=== PATIENT | female | born 1940 | race Caucasian/White ===

== ENCOUNTER 2017-08-12 13:28 | Emergency (ER) | payer MEDICARE, OTHER, SELFPAY ==
[2017-08-12 13:38] VITALS: BP 173/63; PULSE 62; RESP 20; TEMP 36.4; O2SAT 98; BMI 28.3
--- NOTE | 2017-08-12 13:54 | ED.NAVMDI ---
HPI - Nausea/Vomiting/Diarrhea <Patrizia Elmore PA-C - Last Filed: 08/12/17 21:36> General Chief complaint: Nausea/Vomiting/Diarrhea Stated complaint: 'NOT FEELING GOOD' Time Seen by Provider: 08/12/17 13:30 Source: patient and family Mode of arrival: ambulatory Limitations: no limitations History of Present Illness HPI Narrative: This 77-year-old female presents with a 2 day history of worsening generalized weakness. She states that she has felt nauseated and has not eaten, so she thinks it may be related to that. She states that she has not vomited, but feels like she will throw up if she eats. She denies any focal weakness, difficulty with speech, or swallowing. She denies any chest pain, dyspnea or palpitations. She denies any abdominal pain, urinary symptoms, diarrhea or blood in the stools. She denies any recent upper respiratory symptoms such as cough. She denies any fever or other new symptoms. She states she has been trying to go about her daily activities but getting more difficult due to feeling weak. She states the only new medication she is on is Aricept. Took the 1st dose on Saturday and she did start to feel nauseated after that. Related Data Home Medications Medication Instructions Recorded Confirmed loratadine 10 mg PO QDAY #0 03/04/17 08/12/17 amlodipine 10 mg PO DAILY 08/12/17 08/12/17 atenolol 25 mg PO DAILY 08/12/17 08/12/17 clotrimazole-betamethasone 1 applic TOPICAL BID 08/12/17 08/12/17 fluoxetine 40 mg PO BID 08/12/17 08/12/17 insulin aspart U-100 [Novolog 21 unit SQ TIDWM 08/12/17 08/12/17 Flexpen U-100 Insulin] insulin glargine [Lantus Solostar 30 units SUB-Q BEDTIME 08/12/17 08/12/17 U-100 Insulin] ipratropium bromide 2 spray INTRANASAL DIRECTED 08/12/17 08/12/17 Previous Rx's Medication Instructions Recorded levothyroxine [Synthroid] 75 mcg PO QAM #30 tab 03/08/17 ondansetron [Zofran ODT] 4 mg PO Q6H PRN #7 tab 08/12/17 Allergies Allergy/AdvReac Type Severity Reaction Status Date / Time Sulfa (Sulfonamide Allergy Intermediate Rash Verified 08/12/17 13:41 Antibiotics) [SULFA (SULFONAMIDE ANTIBIOTICS)] Penicillins [PENICILLINS] Allergy Unknown Rash Verified 08/12/17 13:41 promethazine [PROMETHAZINE] Allergy Unknown Unverified 06/19/17 12:41 Review of Systems <Patrizia Elmore PA-C - Last Filed: 08/12/17 21:36> Review of Systems All systems reviewed & are unremarkable except as noted in HPI and below Exam <Patrizia Elmore PA-C - Last Filed: 08/12/17 21:36> Narrative Exam Narrative: GENERAL APPEARANCE: Patient sitting comfortably, in no distress. HEENT: PERRL, EOMI, normal oropharynx NECK: Supple, no masses LUNGS: Clear to auscultation bilaterally. HEART: Rate and rhythm regular without murmur, normal S1 and S2, no S3 or S4. ABDOMEN: Soft, NT, ND, + BS x 4 quadrants NEUROLOGIC: Alert and oriented, normal speech, and coordination. MUSCULOSKELETAL: Full Csp AROM. COY. Able to maintain bilateral hip and shoulder flexion without drift Initial Vital Signs Initial Vital Signs: Vital Signs Temperature 97.6 F 08/12/17 13:38 Pulse Rate 62 08/12/17 13:38 Respiratory Rate 20 08/12/17 13:38 Blood Pressure 173/63 H 08/12/17 13:38 Pulse Oximetry 98 08/12/17 13:38 <Ion Lee MD - Last Filed: 09/12/17 06:50> Initial Vital Signs Initial Vital Signs: Vital Signs Temperature 97.6 F 08/12/17 13:38 Pulse Rate 62 08/12/17 13:38 Respiratory Rate 20 08/12/17 13:38 Blood Pressure 173/63 H 08/12/17 13:38 Pulse Oximetry 98 08/12/17 13:38 Course <Patrizia Elmore PA-C - Last Filed: 08/12/17 21:36> Hospital Course: Prior to discharge patient is ambulating comfortably, reported feeling improved, nausea resolved. Tolerating fluids and food. Reviewed findings with Dr. Navarro as well as time correlation of symptoms with her starting Aricept. He is agreeable with plan to discharge patient. I did review her findings of elevated LFTs with her, and she states that she thinks she has had these in the past (we may not have access to her most recent lab work as her PCP uses an outside lab). Advised her of need for follow up on these as well as her nausea and weakness with her PCP in the next few days and she is agreeable Orders Ordered: Discontinued Medications Sodium Chloride (Normal Saline 0.9%) 1,000 mls @ 1,000 mls/hr IV BOLUS ONE Stop: 08/12/17 15:08 Last Infusion: 08/12/17 18:13 Dose: 0 mls/hr Admin: 08/12/17 14:19 Dose: 1,000 mls/hr Ondansetron HCl (Zofran) 4 mg IV NOW ONE Stop: 08/12/17 14:10 Last Admin: 08/12/17 14:19 Dose: 4 mg Vital Signs - 8 hr 08/12/17 13:38 08/12/17 14:16 08/12/17 15:08 Temperature 97.6 F Pulse Rate 62 60 56 L Respiratory Rate 20 16 16 Blood Pressure 173/63 H Blood Pressure [Left Arm] 173/63 H 137/42 H Pulse Oximetry 98 99 95 08/12/17 16:04 08/12/17 17:50 Temperature Pulse Rate 57 L 56 L Respiratory Rate 16 16 Blood Pressure 139/54 H Blood Pressure [Left Arm] 122/47 H Pulse Oximetry 96 97 <Ion Lee MD - Last Filed: 09/12/17 06:50> Orders Ordered: Discontinued Medications Sodium Chloride (Normal Saline 0.9%) 1,000 mls @ 1,000 mls/hr IV BOLUS ONE Stop: 08/12/17 15:08 Last Infusion: 08/12/17 18:13 Dose: 0 mls/hr Admin: 08/12/17 14:19 Dose: 1,000 mls/hr Ondansetron HCl (Zofran) 4 mg IV NOW ONE Stop: 08/12/17 14:10 Last Admin: 08/12/17 14:19 Dose: 4 mg Vital Signs - 8 hr 08/12/17 13:38 08/12/17 14:16 08/12/17 15:08 Temperature 97.6 F Pulse Rate 62 60 56 L Respiratory Rate 20 16 16 Blood Pressure 173/63 H Blood Pressure [Left Arm] 173/63 H 137/42 H Pulse Oximetry 98 99 95 08/12/17 16:04 08/12/17 17:50 Temperature Pulse Rate 57 L 56 L Respiratory Rate 16 16 Blood Pressure 139/54 H Blood Pressure [Left Arm] 122/47 H Pulse Oximetry 96 97 MDM - Nausea/Vomiting/Diarrhea <Patrizia Elmore PA-C - Last Filed: 08/12/17 21:36> Lab Data Result diagrams: 08/12/17 14:35 08/12/17 14:35 Lab Results 08/12/17 08/12/17 08/12/17 Range/Units 14:35 14:35 14:35 WBC 8.4 (4.5-11.0) X10^3/uL RBC 4.58 (4.0-5.2) X10^6/uL Hgb 12.9 (12.0-16.0) g/dL Hct 37.7 (36-46) % MCV 82.3 (80-100) fL MCH 28.1 (26-34) PG MCHC 34.2 (30-36) % RDW 15.9 H (11.6-14.8) % Plt Count 213 (150-400) X10^3/uL Neut % (Auto) 83.8 H (50-75) % Lymph % (Auto) 10.9 L (25-40) % Carroll % (Auto) 4.2 (3-14) % Eos % (Auto) 0.8 L (2-4) % Baso % (Auto) 0.3 (0-2) % Neut # (Auto) 7100 H (7113-3806) /uL Sodium 137 (137-145) mmol/L Potassium 4.4 (3.4-5.1) mmol/L Chloride 99 (98-107) mmol/L Carbon Dioxide 28 (22-32) mmol/L BUN 16 (7-17) mg/dL Creatinine 0.50 L (0.52-1.04) mg/dL Estimated GFR > 60.0 (>60) mL/min BUN/Creatinine Ratio 32.0 H (6-22) Glucose 181 H (80-110) mg/dL Calcium 9.6 (8.4-10.2) mg/dL Magnesium 1.7 (1.6-2.3) mg/dL Total Bilirubin 0.6 (0.2-1.3) mg/dL AST 314 H (14-36) IU/L ALT 184 H (9-52) IU/L Alkaline Phosphatase 157 H (38-126) U/L Troponin I < 0.012 (0.01-0.034) ng/mL Total Protein 7.4 (6.3-8.2) g/dL Albumin 4.0 (3.5-5.0) g/dL Globulin 3.4 (1.7-4.1) g/dL Albumin/Globulin Ratio 1.2 (1.0-2.8) Lipase 176 (23-300) U/L Urine Color Urine Appearance Urine pH Ur Specific Shannon Urine Protein Urine Glucose (UA) Urine Ketones Urine Occult Blood Urine Nitrate Urine Bilirubin Urine Urobilinogen Ur Leukocyte Esterase Urine RBC (0-5/HPF) Urine WBC (0-5/HPF) Ur Squamous Epith Cells Ur Transition Epith Cell Ur Renal Epithelial Cell Calcium Oxalate Crystal Uric Acid Crystals Triple Phos Crystals Other Crystals Amorphous Sediment Urine Bacteria (None) Hyaline Casts Granular Casts RBC Casts WBC Casts Other Casts Urine Mucus Urine Trichomonas Urine Yeast Urine Sperm Ur Culture Indicated? Micro UA Comment 08/12/17 09/07/17 Range/Units 16:31 Unknown WBC (4.5-11.0) X10^3/uL RBC (4.0-5.2) X10^6/uL Hgb (12.0-16.0) g/dL Hct (36-46) % MCV (80-100) fL MCH (26-34) PG MCHC (30-36) % RDW (11.6-14.8) % Plt Count (150-400) X10^3/uL Neut % (Auto) (50-75) % Lymph % (Auto) (25-40) % Carroll % (Auto) (3-14) % Eos % (Auto) (2-4) % Baso % (Auto) (0-2) % Neut # (Auto) (4350-3181) /uL Sodium (137-145) mmol/L Potassium (3.4-5.1) mmol/L Chloride (98-107) mmol/L Carbon Dioxide (22-32) mmol/L BUN (7-17) mg/dL Creatinine (0.52-1.04) mg/dL Estimated GFR (>60) mL/min BUN/Creatinine Ratio (6-22) Glucose (80-110) mg/dL Calcium (8.4-10.2) mg/dL Magnesium (1.6-2.3) mg/dL Total Bilirubin (0.2-1.3) mg/dL AST (14-36) IU/L ALT (9-52) IU/L Alkaline Phosphatase (38-126) U/L Troponin I (0.01-0.034) ng/mL Total Protein (6.3-8.2) g/dL Albumin (3.5-5.0) g/dL Globulin (1.7-4.1) g/dL Albumin/Globulin Ratio (1.0-2.8) Lipase (23-300) U/L Urine Color Cancelled Urine Appearance Cancelled Urine pH Cancelled Ur Specific Shannon Cancelled Urine Protein Cancelled Urine Glucose (UA) Cancelled Urine Ketones Cancelled Urine Occult Blood Cancelled Urine Nitrate Cancelled Urine Bilirubin Cancelled Urine Urobilinogen Cancelled Ur Leukocyte Esterase Cancelled Urine RBC 1-5/hpf Cancelled (0-5/HPF) Urine WBC 5-10/hpf H Cancelled (0-5/HPF) Ur Squamous Epith Cells 0-1 /hpf Cancelled Ur Transition Epith Cell Cancelled Ur Renal Epithelial Cell Cancelled Calcium Oxalate Crystal Cancelled Uric Acid Crystals Cancelled Triple Phos Crystals Cancelled Other Crystals Cancelled Amorphous Sediment Cancelled Urine Bacteria Many (>30) H Cancelled (None) Hyaline Casts Cancelled Granular Casts Cancelled RBC Casts Cancelled WBC Casts Cancelled Other Casts Cancelled Urine Mucus Cancelled Urine Trichomonas Cancelled Urine Yeast Cancelled Urine Sperm Cancelled Ur Culture Indicated? Specimen cultured Cancelled Micro UA Comment Not Reportable Cancelled ECG Data Attestation: I personally reviewed and interpreted this ECG as follows: (NSR with rate 61, normal axis) Prior ECG tracings: not available for review <Ion Lee MD - Last Filed: 09/12/17 06:50> Lab Data Lab Results 08/12/17 08/12/17 08/12/17 Range/Units 14:35 14:35 14:35 WBC 8.4 (4.5-11.0) X10^3/uL RBC 4.58 (4.0-5.2) X10^6/uL Hgb 12.9 (12.0-16.0) g/dL Hct 37.7 (36-46) % MCV 82.3 (80-100) fL MCH 28.1 (26-34) PG MCHC 34.2 (30-36) % RDW 15.9 H (11.6-14.8) % Plt Count 213 (150-400) X10^3/uL Neut % (Auto) 83.8 H (50-75) % Lymph % (Auto) 10.9 L (25-40) % Carroll % (Auto) 4.2 (3-14) % Eos % (Auto) 0.8 L (2-4) % Baso % (Auto) 0.3 (0-2) % Neut # (Auto) 7100 H (1243-6024) /uL Sodium 137 (137-145) mmol/L Potassium 4.4 (3.4-5.1) mmol/L Chloride 99 (98-107) mmol/L Carbon Dioxide 28 (22-32) mmol/L BUN 16 (7-17) mg/dL Creatinine 0.50 L (0.52-1.04) mg/dL Estimated GFR > 60.0 (>60) mL/min BUN/Creatinine Ratio 32.0 H (6-22) Glucose 181 H (80-110) mg/dL Calcium 9.6 (8.4-10.2) mg/dL Magnesium 1.7 (1.6-2.3) mg/dL Total Bilirubin 0.6 (0.2-1.3) mg/dL AST 314 H (14-36) IU/L ALT 184 H (9-52) IU/L Alkaline Phosphatase 157 H (38-126) U/L Troponin I < 0.012 (0.01-0.034) ng/mL Total Protein 7.4 (6.3-8.2) g/dL Albumin 4.0 (3.5-5.0) g/dL Globulin 3.4 (1.7-4.1) g/dL Albumin/Globulin Ratio 1.2 (1.0-2.8) Lipase 176 (23-300) U/L Urine Color Urine Appearance Urine pH Ur Specific Shannon Urine Protein Urine Glucose (UA) Urine Ketones Urine Occult Blood Urine Nitrate Urine Bilirubin Urine Urobilinogen Ur Leukocyte Esterase Urine RBC (0-5/HPF) Urine WBC (0-5/HPF) Ur Squamous Epith Cells Ur Transition Epith Cell Ur Renal Epithelial Cell Calcium Oxalate Crystal Uric Acid Crystals Triple Phos Crystals Other Crystals Amorphous Sediment Urine Bacteria (None) Hyaline Casts Granular Casts RBC Casts WBC Casts Other Casts Urine Mucus Urine Trichomonas Urine Yeast Urine Sperm Ur Culture Indicated? Micro UA Comment 08/12/17 09/07/17 Range/Units 16:31 Unknown WBC (4.5-11.0) X10^3/uL RBC (4.0-5.2) X10^6/uL Hgb (12.0-16.0) g/dL Hct (36-46) % MCV (80-100) fL MCH (26-34) PG MCHC (30-36) % RDW (11.6-14.8) % Plt Count (150-400) X10^3/uL Neut % (Auto) (50-75) % Lymph % (Auto) (25-40) % Carroll % (Auto) (3-14) % Eos % (Auto) (2-4) % Baso % (Auto) (0-2) % Neut # (Auto) (8103-8280) /uL Sodium (137-145) mmol/L Potassium (3.4-5.1) mmol/L Chloride (98-107) mmol/L Carbon Dioxide (22-32) mmol/L BUN (7-17) mg/dL Creatinine (0.52-1.04) mg/dL Estimated GFR (>60) mL/min BUN/Creatinine Ratio (6-22) Glucose (80-110) mg/dL Calcium (8.4-10.2) mg/dL Magnesium (1.6-2.3) mg/dL Total Bilirubin (0.2-1.3) mg/dL AST (14-36) IU/L ALT (9-52) IU/L Alkaline Phosphatase (38-126) U/L Troponin I (0.01-0.034) ng/mL Total Protein (6.3-8.2) g/dL Albumin (3.5-5.0) g/dL Globulin (1.7-4.1) g/dL Albumin/Globulin Ratio (1.0-2.8) Lipase (23-300) U/L Urine Color Cancelled Urine Appearance Cancelled Urine pH Cancelled Ur Specific Shannon Cancelled Urine Protein Cancelled Urine Glucose (UA) Cancelled Urine Ketones Cancelled Urine Occult Blood Cancelled Urine Nitrate Cancelled Urine Bilirubin Cancelled Urine Urobilinogen Cancelled Ur Leukocyte Esterase Cancelled Urine RBC 1-5/hpf Cancelled (0-5/HPF) Urine WBC 5-10/hpf H Cancelled (0-5/HPF) Ur Squamous Epith Cells 0-1 /hpf Cancelled Ur Transition Epith Cell Cancelled Ur Renal Epithelial Cell Cancelled Calcium Oxalate Crystal Cancelled Uric Acid Crystals Cancelled Triple Phos Crystals Cancelled Other Crystals Cancelled Amorphous Sediment Cancelled Urine Bacteria Many (>30) H Cancelled (None) Hyaline Casts Cancelled Granular Casts Cancelled RBC Casts Cancelled WBC Casts Cancelled Other Casts Cancelled Urine Mucus Cancelled Urine Trichomonas Cancelled Urine Yeast Cancelled Urine Sperm Cancelled Ur Culture Indicated? Specimen cultured Cancelled Micro UA Comment Not Reportable Cancelled Discharge Plan Departure Patient Disposition: Home, Self-Care Clinical Impression: Weakness, Nausea Discharge Date/Time: 08/12/17 17:46 Interventions: ED Discharge Assessment Last Done: 08/12/17 18:12 Instructions: DI for Nausea -- Adult Activity Restrictions/Additional Instructions: I think your weakness is likely due to nausea and not eating for the last couple of days. It does seem that there is a time correlation with you starting the Aricept (donazepril) so please discontinue that. Take the antinausea medicine as needed. If this is related to the medication, it should improve over the next day or so as it gets out of your system. Please drink plenty of clear fluids tonight and have some bland food. In addition to the antinausea pills, I have sent an antibiotic for you for a urinary infection. You did have some bacteria in your urine but it is not clear whether you actually have an infection. I suspect this is not the cause of your symptoms today, but it is reasonable to treat until the urine culture is back. Please see your PCP in the next day or 2 for follow-up to make sure you are improving as expected. Return here immediately if you have any acutely worsening symptoms again. Prescriptions: New ondansetron [Zofran ODT] 4 mg tablet,disintegrating 4 mg PO Q6H PRN (Reason: nausea) Qty: 7 RF: 0 Discontinued donepezil 10 mg Tablet 10 mg PO DAILY RF: 0 No Action loratadine 10 MG tablet 10 mg PO QDAY Qty: 0 RF: 0 levothyroxine [Synthroid] 75 MCG tablet 75 mcg PO QAM Qty: 30 RF: 0 fluoxetine 40 mg Capsule 40 mg PO BID RF: 0 atenolol 25 mg Tablet 25 mg PO DAILY RF: 0 amlodipine 10 mg Tablet 10 mg PO DAILY RF: 0 clotrimazole-betamethasone 1-0.05 % Cream 1 applic TOPICAL BID RF: 0 ipratropium bromide 42 mcg (0.06 %) [place],Non-Aerosol 2 spray Intranasal DIRECTED RF: 0 insulin glargine [Lantus Solostar U-100 Insulin] 100 unit/mL (3 mL) Insulin Pen 30 units Sub-Q BEDTIME RF: 0 insulin aspart U-100 [Novolog Flexpen U-100 Insulin] 100 UNIT/1 ML insulin pen 21 unit SQ TIDWM RF: 0 Referrals: Salvador Gillis MD [Primary Care Provider] - <Ion Lee MD - Last Filed: 09/12/17 06:50> Cosign ED Attending Cosignature Attestation: The PA/SHIFT ENGINEER functioned independently for the care of this pt, I was available, but not asked to participate in care. I am unable to determine appropriateness of management without personally examining the pt.
[2017-08-12 14:16] VITALS: BP 173/63; PULSE 60; RESP 16; O2SAT 99
[2017-08-12] MEDS: SODIUM CHLORIDE 0.9% 1,000 ML 1000 ML IV (14:19)
[2017-08-12] MEDS: ONDANSETRON 4 MG/2 ML INJ IV (14:19)
--- NOTE | 2017-08-12 14:20 | ED_ITS ---
HPI - Nausea/Vomiting/Diarrhea <Patrizia Elmore PA-C - Last Filed: 08/12/17 21:36> General Chief complaint: Nausea/Vomiting/Diarrhea Stated complaint: 'NOT FEELING GOOD' Time Seen by Provider: 08/12/17 13:30 Source: patient and family Mode of arrival: ambulatory Limitations: no limitations History of Present Illness HPI Narrative: This 77-year-old female presents with a 2 day history of worsening generalized weakness. She states that she has felt nauseated and has not eaten, so she thinks it may be related to that. She states that she has not vomited, but feels like she will throw up if she eats. She denies any focal weakness, difficulty with speech, or swallowing. She denies any chest pain, dyspnea or palpitations. She denies any abdominal pain, urinary symptoms , diarrhea or blood in the stools. She denies any recent upper respiratory symptoms such as cough. She denies any fever or other new symptoms. She states she has been trying to go about her daily activities but getting more difficult due to feeling weak. She states the only new medication she is on is Aricept. Took the 1st dose on Saturday and she did start to feel nauseated after that. Related Data Home Medications Medication Instructions Recorded Confirmed loratadine 10 mg PO QDAY #0 03/04/17 08/12/17 amlodipine 10 mg PO DAILY 08/12/17 08/12/17 atenolol 25 mg PO DAILY 08/12/17 08/12/17 clotrimazole-betamethasone 1 applic TOPICAL BID 08/12/17 08/12/17 fluoxetine 40 mg PO BID 08/12/17 08/12/17 insulin aspart U-100 [Novolog 21 unit SQ TIDWM 08/12/17 08/12/17 Flexpen U-100 Insulin] insulin glargine [Lantus Solostar 30 units SUB-Q BEDTIME 08/12/17 08/12/17 U-100 Insulin] ipratropium bromide 2 spray INTRANASAL DIRECTED 08/12/17 08/12/17 Previous Rx's Medication Instructions Recorded levothyroxine [Synthroid] 75 mcg PO QAM #30 tab 03/08/17 ondansetron [Zofran ODT] 4 mg PO Q6H PRN #7 tab 08/12/17 Allergies Allergy/AdvReac Type Severity Reaction Status Date / Time Sulfa (Sulfonamide Allergy Intermediate Rash Verified 08/12/17 13:41 Antibiotics) [SULFA (SULFONAMIDE ANTIBIOTICS)] Penicillins [PENICILLINS] Allergy Unknown Rash Verified 08/12/17 13:41 promethazine [PROMETHAZINE] Allergy Unknown Unverified 06/19/17 12:41 Review of Systems <Patrizia Elmore PA-C - Last Filed: 08/12/17 21:36> Review of Systems All systems reviewed & are unremarkable except as noted in HPI and below Exam <Patrizia Elmore PA-C - Last Filed: 08/12/17 21:36> Narrative Exam Narrative: GENERAL APPEARANCE: Patient sitting comfortably, in no distress. HEENT: PERRL, EOMI, normal oropharynx NECK: Supple, no masses LUNGS: Clear to auscultation bilaterally. HEART: Rate and rhythm regular without murmur, normal S1 and S2, no S3 or S4. ABDOMEN: Soft, NT, ND, + BS x 4 quadrants NEUROLOGIC: Alert and oriented, normal speech, and coordination. MUSCULOSKELETAL: Full Csp AROM. COY. Able to maintain bilateral hip and shoulder flexion without drift Initial Vital Signs Initial Vital Signs: Vital Signs Temperature 97.6 F 08/12/17 13:38 Pulse Rate 62 08/12/17 13:38 Respiratory Rate 20 08/12/17 13:38 Blood Pressure 173/63 H 08/12/17 13:38 Pulse Oximetry 98 08/12/17 13:38 <Ion Lee MD - Last Filed: 09/12/17 06:50> Initial Vital Signs Initial Vital Signs: Vital Signs Temperature 97.6 F 08/12/17 13:38 Pulse Rate 62 08/12/17 13:38 Respiratory Rate 20 08/12/17 13:38 Blood Pressure 173/63 H 08/12/17 13:38 Pulse Oximetry 98 08/12/17 13:38 Course <Patrizia Elmore PA-C - Last Filed: 08/12/17 21:36> Hospital Course: Prior to discharge patient is ambulating comfortably, reported feeling improved , nausea resolved. Tolerating fluids and food. Reviewed findings with Dr. Navarro as well as time correlation of symptoms with her starting Aricept. He is agreeable with plan to discharge patient. I did review her findings of elevated LFTs with her, and she states that she thinks she has had these in the past (we may not have access to her most recent lab work as her PCP uses an outside lab). Advised her of need for follow up on these as well as her nausea and weakness with her PCP in the next few days and she is agreeable Orders Ordered: Discontinued Medications Sodium Chloride (Normal Saline 0.9%) 1,000 mls @ 1,000 mls/hr IV BOLUS ONE Stop: 08/12/17 15:08 Last Infusion: 08/12/17 18:13 Dose: 0 mls/hr Admin: 08/12/17 14:19 Dose: 1,000 mls/hr Ondansetron HCl (Zofran) 4 mg IV NOW ONE Stop: 08/12/17 14:10 Last Admin: 08/12/17 14:19 Dose: 4 mg Vital Signs - 8 hr 08/12/17 13:38 08/12/17 14:16 08/12/17 15:08 Temperature 97.6 F Pulse Rate 62 60 56 L Respiratory Rate 20 16 16 Blood Pressure 173/63 H Blood Pressure [Left Arm] 173/63 H 137/42 H Pulse Oximetry 98 99 95 08/12/17 16:04 08/12/17 17:50 Temperature Pulse Rate 57 L 56 L Respiratory Rate 16 16 Blood Pressure 139/54 H Blood Pressure [Left Arm] 122/47 H Pulse Oximetry 96 97 <Ion Lee MD - Last Filed: 09/12/17 06:50> Orders Ordered: Discontinued Medications Sodium Chloride (Normal Saline 0.9%) 1,000 mls @ 1,000 mls/hr IV BOLUS ONE Stop: 08/12/17 15:08 Last Infusion: 08/12/17 18:13 Dose: 0 mls/hr Admin: 08/12/17 14:19 Dose: 1,000 mls/hr Ondansetron HCl (Zofran) 4 mg IV NOW ONE Stop: 08/12/17 14:10 Last Admin: 08/12/17 14:19 Dose: 4 mg Vital Signs - 8 hr 08/12/17 13:38 08/12/17 14:16 08/12/17 15:08 Temperature 97.6 F Pulse Rate 62 60 56 L Respiratory Rate 20 16 16 Blood Pressure 173/63 H Blood Pressure [Left Arm] 173/63 H 137/42 H Pulse Oximetry 98 99 95 08/12/17 16:04 08/12/17 17:50 Temperature Pulse Rate 57 L 56 L Respiratory Rate 16 16 Blood Pressure 139/54 H Blood Pressure [Left Arm] 122/47 H Pulse Oximetry 96 97 MDM - Nausea/Vomiting/Diarrhea <Patirzia Elmore PA-C - Last Filed: 08/12/17 21:36> Lab Data Result diagrams: 08/12/17 14:35 08/12/17 14:35 Lab Results 08/12/17 08/12/17 08/12/17 Range/Units 14:35 14:35 14:35 WBC 8.4 (4.5-11.0) X10^3/uL RBC 4.58 (4.0-5.2) X10^6/uL Hgb 12.9 (12.0-16.0) g/dL Hct 37.7 (36-46) % MCV 82.3 (80-100) fL MCH 28.1 (26-34) PG MCHC 34.2 (30-36) % RDW 15.9 H (11.6-14.8) % Plt Count 213 (150-400) X10^3/uL Neut % (Auto) 83.8 H (50-75) % Lymph % (Auto) 10.9 L (25-40) % [place] % (Auto) 4.2 (3-14) % Eos % (Auto) 0.8 L (2-4) % Baso % (Auto) 0.3 (0-2) % Neut # (Auto) 7100 H (9010-8710) /uL Sodium 137 (137-145) mmol/L Potassium 4.4 (3.4-5.1) mmol/L Chloride 99 (98-107) mmol/L Carbon Dioxide 28 (22-32) mmol/L BUN 16 (7-17) mg/dL Creatinine 0.50 L (0.52-1.04) mg/dL Estimated GFR > 60.0 (>60) mL/min BUN/Creatinine Ratio 32.0 H (6-22) Glucose 181 H (80-110) mg/dL Calcium 9.6 (8.4-10.2) mg/dL Magnesium 1.7 (1.6-2.3) mg/dL Total Bilirubin 0.6 (0.2-1.3) mg/dL AST 314 H (14-36) IU/L ALT 184 H (9-52) IU/L Alkaline Phosphatase 157 H (38-126) U/L Troponin I < 0.012 (0.01-0.034) ng/mL Total Protein 7.4 (6.3-8.2) g/dL Albumin 4.0 (3.5-5.0) g/dL Globulin 3.4 (1.7-4.1) g/dL Albumin/Globulin Ratio 1.2 (1.0-2.8) Lipase 176 (23-300) U/L Urine Color Urine Appearance Urine pH Ur Specific [place] Urine Protein Urine Glucose (UA) Urine Ketones Urine Occult Blood Urine Nitrate Urine Bilirubin Urine Urobilinogen Ur Leukocyte Esterase Urine RBC (0-5/HPF) Urine WBC (0-5/HPF) Ur Squamous Epith Cells Ur Transition Epith Cell Ur Renal Epithelial Cell Calcium Oxalate Crystal Uric Acid Crystals Triple Phos Crystals Other Crystals Amorphous Sediment Urine Bacteria (None) Hyaline Casts Granular Casts RBC Casts WBC Casts Other Casts Urine Mucus Urine Trichomonas Urine Yeast Urine Sperm Ur Culture Indicated? Micro UA Comment 08/12/17 09/07/17 Range/Units 16:31 Unknown WBC (4.5-11.0) X10^3/uL RBC (4.0-5.2) X10^6/uL Hgb (12.0-16.0) g/dL Hct (36-46) % MCV (80-100) fL MCH (26-34) PG MCHC (30-36) % RDW (11.6-14.8) % Plt Count (150-400) X10^3/uL Neut % (Auto) (50-75) % Lymph % (Auto) (25-40) % [place] % (Auto) (3-14) % Eos % (Auto) (2-4) % Baso % (Auto) (0-2) % Neut # (Auto) (5895-9524) /uL Sodium (137-145) mmol/L Potassium (3.4-5.1) mmol/L Chloride (98-107) mmol/L Carbon Dioxide (22-32) mmol/L BUN (7-17) mg/dL Creatinine (0.52-1.04) mg/dL Estimated GFR (>60) mL/min BUN/Creatinine Ratio (6-22) Glucose (80-110) mg/dL Calcium (8.4-10.2) mg/dL Magnesium (1.6-2.3) mg/dL Total Bilirubin (0.2-1.3) mg/dL AST (14-36) IU/L ALT (9-52) IU/L Alkaline Phosphatase (38-126) U/L Troponin I (0.01-0.034) ng/mL Total Protein (6.3-8.2) g/dL Albumin (3.5-5.0) g/dL Globulin (1.7-4.1) g/dL Albumin/Globulin Ratio (1.0-2.8) Lipase (23-300) U/L Urine Color Cancelled Urine Appearance Cancelled Urine pH Cancelled Ur Specific [place] Cancelled Urine Protein Cancelled Urine Glucose (UA) Cancelled Urine Ketones Cancelled Urine Occult Blood Cancelled Urine Nitrate Cancelled Urine Bilirubin Cancelled Urine Urobilinogen Cancelled Ur Leukocyte Esterase Cancelled Urine RBC 1-5/hpf Cancelled (0-5/HPF) Urine WBC 5-10/hpf H Cancelled (0-5/HPF) Ur Squamous Epith Cells 0-1 /hpf Cancelled Ur Transition Epith Cell Cancelled Ur Renal Epithelial Cell Cancelled Calcium Oxalate Crystal Cancelled Uric Acid Crystals Cancelled Triple Phos Crystals Cancelled Other Crystals Cancelled Amorphous Sediment Cancelled Urine Bacteria Many (>30) H Cancelled (None) Hyaline Casts Cancelled Granular Casts Cancelled RBC Casts Cancelled WBC Casts Cancelled Other Casts Cancelled Urine Mucus Cancelled Urine Trichomonas Cancelled Urine Yeast Cancelled Urine Sperm Cancelled Ur Culture Indicated? Specimen cultured Cancelled Micro UA Comment Not Reportable Cancelled ECG Data Attestation: I personally reviewed and interpreted this ECG as follows: (NSR with rate 61, normal axis) Prior ECG tracings: not available for review <Ion Lee MD - Last Filed: 09/12/17 06:50> Lab Data Lab Results 08/12/17 08/12/17 08/12/17 Range/Units 14:35 14:35 14:35 WBC 8.4 (4.5-11.0) X10^3/uL RBC 4.58 (4.0-5.2) X10^6/uL Hgb 12.9 (12.0-16.0) g/dL Hct 37.7 (36-46) % MCV 82.3 (80-100) fL MCH 28.1 (26-34) PG MCHC 34.2 (30-36) % RDW 15.9 H (11.6-14.8) % Plt Count 213 (150-400) X10^3/uL Neut % (Auto) 83.8 H (50-75) % Lymph % (Auto) 10.9 L (25-40) % [place] % (Auto) 4.2 (3-14) % Eos % (Auto) 0.8 L (2-4) % Baso % (Auto) 0.3 (0-2) % Neut # (Auto) 7100 H (0202-8007) /uL Sodium 137 (137-145) mmol/L Potassium 4.4 (3.4-5.1) mmol/L Chloride 99 (98-107) mmol/L Carbon Dioxide 28 (22-32) mmol/L BUN 16 (7-17) mg/dL Creatinine 0.50 L (0.52-1.04) mg/dL Estimated GFR > 60.0 (>60) mL/min BUN/Creatinine Ratio 32.0 H (6-22) Glucose 181 H (80-110) mg/dL Calcium 9.6 (8.4-10.2) mg/dL Magnesium 1.7 (1.6-2.3) mg/dL Total Bilirubin 0.6 (0.2-1.3) mg/dL AST 314 H (14-36) IU/L ALT 184 H (9-52) IU/L Alkaline Phosphatase 157 H (38-126) U/L Troponin I < 0.012 (0.01-0.034) ng/mL Total Protein 7.4 (6.3-8.2) g/dL Albumin 4.0 (3.5-5.0) g/dL Globulin 3.4 (1.7-4.1) g/dL Albumin/Globulin Ratio 1.2 (1.0-2.8) Lipase 176 (23-300) U/L Urine Color Urine Appearance Urine pH Ur Specific [place] Urine Protein Urine Glucose (UA) Urine Ketones Urine Occult Blood Urine Nitrate Urine Bilirubin Urine Urobilinogen Ur Leukocyte Esterase Urine RBC (0-5/HPF) Urine WBC (0-5/HPF) Ur Squamous Epith Cells Ur Transition Epith Cell Ur Renal Epithelial Cell Calcium Oxalate Crystal Uric Acid Crystals Triple Phos Crystals Other Crystals Amorphous Sediment Urine Bacteria (None) Hyaline Casts Granular Casts RBC Casts WBC Casts Other Casts Urine Mucus Urine Trichomonas Urine Yeast Urine Sperm Ur Culture Indicated? Micro UA Comment 08/12/17 09/07/17 Range/Units 16:31 Unknown WBC (4.5-11.0) X10^3/uL RBC (4.0-5.2) X10^6/uL Hgb (12.0-16.0) g/dL Hct (36-46) % MCV (80-100) fL MCH (26-34) PG MCHC (30-36) % RDW (11.6-14.8) % Plt Count (150-400) X10^3/uL Neut % (Auto) (50-75) % Lymph % (Auto) (25-40) % [place] % (Auto) (3-14) % Eos % (Auto) (2-4) % Baso % (Auto) (0-2) % Neut # (Auto) (5573-7725) /uL Sodium (137-145) mmol/L Potassium (3.4-5.1) mmol/L Chloride (98-107) mmol/L Carbon Dioxide (22-32) mmol/L BUN (7-17) mg/dL Creatinine (0.52-1.04) mg/dL Estimated GFR (>60) mL/min BUN/Creatinine Ratio (6-22) Glucose (80-110) mg/dL Calcium (8.4-10.2) mg/dL Magnesium (1.6-2.3) mg/dL Total Bilirubin (0.2-1.3) mg/dL AST (14-36) IU/L ALT (9-52) IU/L Alkaline Phosphatase (38-126) U/L Troponin I (0.01-0.034) ng/mL Total Protein (6.3-8.2) g/dL Albumin (3.5-5.0) g/dL Globulin (1.7-4.1) g/dL Albumin/Globulin Ratio (1.0-2.8) Lipase (23-300) U/L Urine Color Cancelled Urine Appearance Cancelled Urine pH Cancelled Ur Specific [place] Cancelled Urine Protein Cancelled Urine Glucose (UA) Cancelled Urine Ketones Cancelled Urine Occult Blood Cancelled Urine Nitrate Cancelled Urine Bilirubin Cancelled Urine Urobilinogen Cancelled Ur Leukocyte Esterase Cancelled Urine RBC 1-5/hpf Cancelled (0-5/HPF) Urine WBC 5-10/hpf H Cancelled (0-5/HPF) Ur Squamous Epith Cells 0-1 /hpf Cancelled Ur Transition Epith Cell Cancelled Ur Renal Epithelial Cell Cancelled Calcium Oxalate Crystal Cancelled Uric Acid Crystals Cancelled Triple Phos Crystals Cancelled Other Crystals Cancelled Amorphous Sediment Cancelled Urine Bacteria Many (>30) H Cancelled (None) Hyaline Casts Cancelled Granular Casts Cancelled RBC Casts Cancelled WBC Casts Cancelled Other Casts Cancelled Urine Mucus Cancelled Urine Trichomonas Cancelled Urine Yeast Cancelled Urine Sperm Cancelled Ur Culture Indicated? Specimen cultured Cancelled Micro UA Comment Not Reportable Cancelled Discharge Plan Departure Patient Disposition: Home, Self-Care Clinical Impression: Weakness, Nausea Discharge Date/Time: 08/12/17 17:46 Interventions: ED Discharge Assessment Last Done: 08/12/17 18:12 Instructions: DI for Nausea -- Adult Activity Restrictions/Additional Instructions: I think your weakness is likely due to nausea and not eating for the last couple of days. It does seem that there is a time correlation with you starting the Aricept (donazepril) so please discontinue that. Take the antinausea medicine as needed. If this is related to the medication, it should improve over the next day or so as it gets out of your system. Please drink plenty of clear fluids tonight and have some bland food. In addition to the antinausea pills, I have sent an antibiotic for you for a urinary infection. You did have some bacteria in your urine but it is not clear whether you actually have an infection. I suspect this is not the cause of your symptoms today, but it is reasonable to treat until the urine culture is back. Please see your PCP in the next day or 2 for follow-up to make sure you are improving as expected. Return here immediately if you have any acutely worsening symptoms again. Prescriptions: New ondansetron [Zofran ODT] 4 mg tablet,disintegrating 4 mg PO Q6H PRN (Reason: nausea) Qty: 7 RF: 0 Discontinued donepezil 10 mg Tablet 10 mg PO DAILY RF: 0 No Action loratadine 10 MG tablet 10 mg PO QDAY Qty: 0 RF: 0 levothyroxine [Synthroid] 75 MCG tablet 75 mcg PO QAM Qty: 30 RF: 0 fluoxetine 40 mg Capsule 40 mg PO BID RF: 0 atenolol 25 mg Tablet 25 mg PO DAILY RF: 0 amlodipine 10 mg Tablet 10 mg PO DAILY RF: 0 clotrimazole-betamethasone 1-0.05 % Cream 1 applic TOPICAL BID RF: 0 ipratropium bromide 42 mcg (0.06 %) [place],Non-Aerosol 2 spray Intranasal DIRECTED RF: 0 insulin glargine [Lantus Solostar U-100 Insulin] 100 unit/mL (3 mL) Insulin Pen 30 units Sub-Q BEDTIME RF: 0 insulin aspart U-100 [Novolog Flexpen U-100 Insulin] 100 UNIT/1 ML insulin pen 21 unit SQ TIDWM RF: 0 Referrals: Salvador Gillis MD [Primary Care Provider] - <Ion Lee MD - Last Filed: 09/12/17 06:50> Cosign ED Attending Cosignature Attestation: The PA/[employer]ATION DEPARTMENT functioned independently for the care of this pt, I was available, but not asked to participate in care. I am unable to determine appropriateness of management without personally examining the pt.
--- NOTE | 2017-08-12 14:41 | PC.NURSE ---
nausea without vomiting, loss of appetite x2 days following starting donepezil, denies vomiting/bowel pattern changes/urinary changes/fever/cough/soa/cp/abd pain or recent illness, abd soft/nontender with normal bowel tones, amb with sba
[2017-08-12 14:45] LABS: Add Manual Diff / Slide Review NO; Basophils Percent Auto 0.3 % (0-2); Eosinophils Percent Auto 0.8 % (2-4); Hematocrit 37.7 % (36-46); Hemoglobin 12.9 g/dL (12.0-16.0); Lymphocytes Percent Auto 10.9 % (25-40); Mean Corpuscular HGB Conc 34.2 % (30-36); Mean Corpuscular Hemoglobin 28.1 PG (26-34); Mean Corpuscular Volume 82.3 fL (80-100); Monocytes Percent Auto 4.2 % (3-14); Neutrophils Absolute Auto 7100 /uL (3000-5900); Neutrophils Percent Auto 83.8 % (50-75); Platelet Count 213 X10^3/uL (150-400); Red Blood Cell Count 4.58 X10^6/uL (4.0-5.2); Red Cell Distribution Width 15.9 % (11.6-14.8); White Blood Cell Count 8.4 X10^3/uL (4.5-11.0)
[2017-08-12 14:55] LABS: Alanine Aminotransferase 184 IU/L (9-52); Albumin Globulin Ratio 1.2 (1.0-2.8); Alkaline Phosphatase 157 U/L (38-126); Aspartate Aminotransferase 314 IU/L (14-36); Bilirubin Total 0.6 mg/dL (0.2-1.3); Blood Urea Nitrogen 16 mg/dL (7-17); Calcium 9.6 mg/dL (8.4-10.2); Carbon Dioxide 28 mmol/L (22-32); Chloride 99 mmol/L (98-107); Estimated Glomerular Filt Rate > 60.0 mL/min (>60); Globulin 3.4 g/dL (1.7-4.1); Glucose 181 mg/dL (80-110); Magnesium 1.7 mg/dL (1.6-2.3); Potassium 4.4 mmol/L (3.4-5.1); Sodium 137 mmol/L (137-145); Total Protein 7.4 g/dL (6.3-8.2)
[2017-08-12 15:03] LABS: HEMOLYSIS 55 (0-50)
[2017-08-12 15:08] VITALS: BP 137/42; PULSE 56; RESP 16; O2SAT 95
[2017-08-12 15:55] LABS: Lipase 176 U/L (23-300)
[2017-08-12 16:04] VITALS: BP 122/47; PULSE 57; RESP 16; O2SAT 96
[2017-08-12 17:18] LABS: Bacteria Urine Many (>30); Culture Indicated Urine Specimen Cultured; RBC Urine 1-5/HPF (0-5/HPF); Squamous Epithelial Cell Urine 0-1 /HPF; WBC Urine 5-10/HPF (0-5/HPF)
[2017-08-12 17:25] LABS: Troponin I < 0.012 ng/mL (0.01-0.034)
[2017-08-12 17:50] VITALS: BP 139/54; PULSE 56; RESP 16; O2SAT 97
== END 2017-08-12 17:46 | disposition home or self-care (01) ==
PROVIDERS: Emergency Provider Internal Medicine; Family Provider Family Medicine; PCP Family Medicine
DX: R53.1 Weakness (principal); R11.0 Nausea
CPT/HCPCS: 36415; 80053; 81001; 81003; 81015; 83690; 83735; 84484; 85025; 87077; 87086; 87186; 93005; 96361; 96374; 99284; J2405

== ENCOUNTER → 2017-09-24 14:48 | Outpatient (CLI) | payer MEDICARE, OTHER, SELFPAY ==
[2017-09-24 15:48] LABS: Hematocrit 39.6 % (36-46); Hemoglobin 13.8 g/dL (12.0-16.0); Mean Corpuscular HGB Conc 34.8 % (30-36); Mean Corpuscular Hemoglobin 29.6 PG (26-34); Mean Corpuscular Volume 84.9 fL (80-100); Platelet Count 287 X10^3/uL (150-400); Red Blood Cell Count 4.67 X10^6/uL (4.0-5.2); Red Cell Distribution Width 16.3 % (11.6-14.8); White Blood Cell Count 7.3 X10^3/uL (4.5-11.0)
[2017-09-24 16:26] LABS: HEMOLYSIS < 15 (0-50); Iron 116 ug/dL (37-170)
[2017-09-24 16:39] LABS: Percent Iron Saturation 33 % (15-50); Total Iron Binding Capacity 350 ug/dL (265-497); Transferrin 276 mg/dL (206-381)
[2017-09-24 16:57] LABS: Thyroid Stimulating Hormone 2.04 uIU/mL (0.47-4.68)
== END ==
PROVIDERS: Family Provider Family Medicine; PCP Family Medicine; Visit Provider Nurse Practitioner Family
DX: R10.10 Upper abdominal pain, unspecified (principal); D50.9 Iron deficiency anemia, unspecified; E03.9 Hypothyroidism, unspecified
CPT/HCPCS: 36415; 83540; 83550; 84443; 85027

== ENCOUNTER → 2018-01-06 13:05 | Outpatient (CLI) | payer MEDICARE, OTHER, SELFPAY ==
[2018-01-06 14:22] LABS: Add Manual Diff / Slide Review NO; Basophils Percent Auto 1.2 % (0-2); Eosinophils Percent Auto 5.8 % (2-4); Hematocrit 43.3 % (36-46); Hemoglobin 14.7 g/dL (12.0-16.0); Lymphocytes Percent Auto 27.7 % (25-40); Mean Corpuscular HGB Conc 33.9 % (30-36); Mean Corpuscular Hemoglobin 30.3 PG (26-34); Mean Corpuscular Volume 89.3 fL (80-100); Monocytes Percent Auto 6.7 % (3-14); Neutrophils Absolute Auto 2900 /uL (3000-5900); Neutrophils Percent Auto 58.6 % (50-75); Platelet Count 305 X10^3/uL (150-400); Red Blood Cell Count 4.85 X10^6/uL (4.0-5.2); Red Cell Distribution Width 12.8 % (11.6-14.8)
[2018-01-06 14:30] LABS: Hemoglobin A1C% w Est Avg Glu 6.5 % (4.0-6.0)
[2018-01-06 14:49] LABS: Alanine Aminotransferase 40 IU/L (9-52); Albumin 4.5 g/dL (3.5-5.0); Albumin Globulin Ratio 1.5 (1.0-2.8); Alkaline Phosphatase 60 U/L (38-126); Aspartate Aminotransferase 40 IU/L (14-36); BUN Creatinine Ratio 22.9 (6-22); Bilirubin Total 0.5 mg/dL (0.2-1.3); Blood Urea Nitrogen 16 mg/dL (7-17); Calcium 9.2 mg/dL (8.4-10.2); Carbon Dioxide 29 mmol/L (22-32); Chloride 103 mmol/L (98-107); Estimated Glomerular Filt Rate > 60.0 mL/min (>60); Globulin 3.1 g/dL (1.7-4.1); Glucose 248 mg/dL (80-110); HEMOLYSIS < 15 (0-50); Potassium 4.5 mmol/L (3.4-5.1); Sodium 145 mmol/L (137-145); Total Protein 7.6 g/dL (6.3-8.2)
== END ==
PROVIDERS: Family Provider Family Medicine; PCP Family Medicine; Visit Provider Family Medicine
DX: M81.0 Age-related osteoporosis without current pathological fracture (principal); Z78.0 Asymptomatic menopausal state; E11.9 Type 2 diabetes mellitus without complications; R11.2 Nausea with vomiting, unspecified; K52.9 Noninfective gastroenteritis and colitis, unspecified; K92.1 Melena; Z87.891 Personal history of nicotine dependence; Z90.722 Acquired absence of ovaries, bilateral
CPT/HCPCS: 36415; 77080; 80053; 83036; 85025

== ENCOUNTER → 2018-01-15 16:28 | Outpatient (CLI) | payer MEDICARE, OTHER, SELFPAY | PROVIDERS: Family Provider Family Medicine; PCP Family Medicine; Visit Provider Physician Assistant | DX: N39.0 Urinary tract infection, site not specified (principal) | CPT/HCPCS: 87086 ==

== ENCOUNTER → 2018-01-23 10:22 | Outpatient (CLI) | payer MEDICARE, OTHER, SELFPAY | PROVIDERS: Family Provider Family Medicine; PCP Family Medicine; Visit Provider Physician Assistant | DX: R82.90 Unspecified abnormal findings in urine (principal) | CPT/HCPCS: 87086 ==

== ENCOUNTER → 2018-01-27 13:16 | Outpatient (CLI) | payer MEDICARE, OTHER, SELFPAY ==
--- NOTE | 2018-01-27 | DI.RAD.S_ITS ---
PROCEDURE: FL BARIUM SWALLOW INDICATIONS: EARLY SATIETY COMPARISON: None. FINDINGS: Function: There is decreased esophageal peristalsis. There is delayed esophageal clearance. Spontaneous gastroesophageal reflux was observed to level of the middle third of the esophagus. There is normal transit of a calibrated barium tablet through the esophagus into the stomach. Morphology: Air-contrast images demonstrate normal mucosal morphology. Single contrast views show no esophageal strictures, extrinsic mass effects, or diverticula. Limited images of the stomach demonstrate normal appearance. IMPRESSION: Severe esophageal dysmotility. Spontaneous gastroesophageal reflux. Dictated by: Ravi Yost M.D. on 01/27/2018 at 15:06 Approved by: Ravi Yost M.D. on 01/27/2018 at 15:08
== END ==
PROVIDERS: Family Provider Family Medicine; PCP Family Medicine; Visit Provider Nurse Practitioner Family
DX: K22.4 Dyskinesia of esophagus (principal); K21.9 Gastro-esophageal reflux disease without esophagitis; R68.81 Early satiety
CPT/HCPCS: 74220

== ENCOUNTER → 2018-01-27 14:14 | Outpatient (CLI) | payer MEDICARE, OTHER, SELFPAY | PROVIDERS: Family Provider Family Medicine; PCP Family Medicine; Visit Provider Physician Assistant | DX: N39.0 Urinary tract infection, site not specified (principal) | CPT/HCPCS: 87086 ==

== ENCOUNTER → 2018-03-18 16:05 | Outpatient (CLI) | payer MEDICARE, OTHER, SELFPAY ==
--- NOTE | 2018-03-18 | DI.US.S_ITS ---
PROCEDURE: US RENAL COMPLETE INDICATIONS: Recurrent [place] TECHNIQUE: Real-time scanning was performed of the kidneys and bladder, with image documentation. COMPARISON: None. FINDINGS: Kidneys: Kidneys are normal in size. Right kidney measures 9.7 cm long; left kidney measures 10.0 cm long. Right renal cortical thickness is 1.5 cm; left renal cortical thickness is 1.8 cm. Renal cortical echotexture is normal. No hydronephrosis. 2 nonobstructing left renal calcifications measuring roughly 4-5 mm. Bladder: Pre-void bladder volume is 45 mL. Post-void residual is 37 mL. Pre-void images demonstrate no intraluminal masses or stones. On pre-void images, neither ureteral jets are noted with color Doppler interrogation. (Of note, ureteral jets may not be detectable in up to 25% of cases due to insufficient differences in specific gravity between ureteral and bladder urine). Miscellaneous: No free pelvic fluid. IMPRESSION: 1. 2 nonobstructing left renal calcifications otherwise normal kidneys. Dictated by: Tyler ULRICH Interpreted: Ni Allen MD on 03/18/2018 at 16:55 Approved by: Ni Allen M.D. on 03/18/2018 at 17:39
== END ==
PROVIDERS: PCP Family Medicine; Visit Provider Urology
DX: N20.0 Calculus of kidney (principal); N39.0 Urinary tract infection, site not specified
CPT/HCPCS: 76770

== ENCOUNTER → 2018-05-12 12:33 | Outpatient (CLI) | payer MEDICARE, OTHER, SELFPAY ==
[2018-05-12 17:20] LABS: Hemoglobin A1C% w Est Avg Glu 7.3 % (4.0-6.0)
== END ==
PROVIDERS: PCP Family Medicine; Visit Provider Family Medicine
DX: E11.9 Type 2 diabetes mellitus without complications (principal); Z87.440 Personal history of urinary (tract) infections
CPT/HCPCS: 36415; 83036; 87086

== ENCOUNTER → 2018-09-17 14:41 | Outpatient (CLI) | payer MEDICARE, OTHER, SELFPAY | PROVIDERS: PCP Family Medicine; Visit Provider Family Medicine | DX: E11.9 Type 2 diabetes mellitus without complications (principal) | CPT/HCPCS: 36415; 83036 ==

== ENCOUNTER → 2019-01-09 16:18 | Outpatient (CLI) | payer MEDICARE, OTHER, SELFPAY ==
[2019-01-09 17:30] LABS: Creatinine Urine Random 131.4 mg/dL
[2019-01-09 17:35] LABS: Microalbumi Creatinin Ratio Ur 66.2 ug/mg CR (<30); Microalbumin Urine Random 8.7 mg/dL (0-1.6)
[2019-01-09 17:37] LABS: Add Manual Diff / Slide Review NO; Basophils Absolute Auto 100 /uL (0-100); Basophils Percent Auto 0.9 % (0-2); Eosinophils Absolute Auto 300 /uL (0-450); Eosinophils Percent Auto 4.2 % (2-4); Hematocrit 38.1 % (36-46); Hemoglobin 12.9 g/dL (12.0-16.0); Lymphocytes Absolute Auto 1700 /uL (1100-4500); Mean Corpuscular HGB Conc 33.9 % (30-36); Mean Corpuscular Hemoglobin 28.9 PG (26-34); Mean Corpuscular Volume 85.3 fL (80-100); Monocytes Absolute Auto 500 /uL (0-900); Monocytes Percent Auto 7.3 % (3-14); Neutrophils Absolute Auto 3900 /uL (1500-7000); Neutrophils Percent Auto 60.6 % (50-75); Platelet Count 319 X10^3/uL (150-400); Red Blood Cell Count 4.47 X10^6/uL (4.0-5.2); White Blood Cell Count 6.5 X10^3/uL (4.5-11.0)
[2019-01-09 17:49] LABS: Hemoglobin A1C% w Est Avg Glu 7.4 % (4.0-6.0)
[2019-01-09 18:38] LABS: Alanine Aminotransferase 23 IU/L (<35); Albumin 4.5 g/dL (3.5-5.0); Albumin Globulin Ratio 1.5 (1.0-2.8); Alkaline Phosphatase 66 U/L (38-126); Aspartate Aminotransferase 30 IU/L (14-36); Bilirubin Total 0.4 mg/dL (0.2-1.3); Blood Urea Nitrogen 21 mg/dL (7-17); Calcium 9.8 mg/dL (8.4-10.2); Carbon Dioxide 30 mmol/L (22-32); Chloride 101 mmol/L (98-107); Cholesterol 185 mg/dL (140-199); Estimated Glomerular Filt Rate > 60.0 mL/min (>60); Globulin 3.1 g/dL (1.7-4.1); Glucose 156 mg/dL (80-110); HDL Cholesterol 47 mg/dL (40-60); HEMOLYSIS < 15 (0-50); LDL Cholesterol Calculated 98 mg/dL (<100); Sodium 139 mmol/L (137-145); Total Protein 7.6 g/dL (6.3-8.2); Triglycerides 198 mg/dL (35-150)
[2019-01-09 18:44] LABS: Potassium 5.6 mmol/L (3.4-5.1)
== END ==
PROVIDERS: PCP Family Medicine; Visit Provider Family Medicine
DX: E11.42 Type 2 diabetes mellitus with diabetic polyneuropathy (principal)
CPT/HCPCS: 36415; 80053; 80061; 82043; 82570; 83036; 84443; 85025

== ENCOUNTER → 2019-04-17 08:32 | Outpatient (CLI) | payer MEDICARE, OTHER, SELFPAY ==
[2019-04-17 09:32] LABS: Add Manual Diff / Slide Review NO; Basophils Absolute Auto 100 /uL (0-100); Basophils Percent Auto 1.2 % (0-2); Eosinophils Absolute Auto 400 /uL (0-450); Hematocrit 37.2 % (36-46); Hemoglobin 12.5 g/dL (12.0-16.0); Lymphocytes Absolute Auto 1900 /uL (1100-4500); Lymphocytes Percent Auto 35.9 % (25-40); Mean Corpuscular HGB Conc 33.6 % (30-36); Mean Corpuscular Hemoglobin 28.1 PG (26-34); Mean Corpuscular Volume 83.7 fL (80-100); Monocytes Absolute Auto 500 /uL (0-900); Monocytes Percent Auto 8.9 % (3-14); Neutrophils Absolute Auto 2500 /uL (1500-7000); Platelet Count 298 X10^3/uL (150-400); Red Blood Cell Count 4.45 X10^6/uL (4.0-5.2); Red Cell Distribution Width 13.5 % (11.6-14.8); White Blood Cell Count 5.3 X10^3/uL (4.5-11.0)
[2019-04-17 09:46] LABS: Hemoglobin A1C% w Est Avg Glu 7.5 % (4.0-6.0)
[2019-04-17 10:03] LABS: Alanine Aminotransferase 16 IU/L (<35); Albumin 4.2 g/dL (3.5-5.0); Albumin Globulin Ratio 1.3 (1.0-2.8); Alkaline Phosphatase 62 U/L (38-126); Aspartate Aminotransferase 23 IU/L (14-36); BUN Creatinine Ratio 22.9 (6-22); Bilirubin Total 0.4 mg/dL (0.2-1.3); Blood Urea Nitrogen 16 mg/dL (7-17); Calcium 9.5 mg/dL (8.4-10.2); Carbon Dioxide 27 mmol/L (22-32); Chloride 105 mmol/L (98-107); Estimated Glomerular Filt Rate > 60.0 mL/min (>60); Globulin 3.3 g/dL (1.7-4.1); Glucose 127 mg/dL (80-110); HEMOLYSIS < 15 (0-50); Potassium 4.4 mmol/L (3.4-5.1); Sodium 141 mmol/L (137-145); Total Protein 7.5 g/dL (6.3-8.2)
[2019-04-17 10:30] LABS: Thyroid Stimulating Hormone 6.08 uIU/mL (0.47-4.68)
== END ==
PROVIDERS: PCP Family Medicine; Referring Provider Family Medicine; Visit Provider Family Medicine
DX: D64.9 Anemia, unspecified (principal); E03.9 Hypothyroidism, unspecified; E11.40 Type 2 diabetes mellitus with diabetic neuropathy, unspecified; E11.65 Type 2 diabetes mellitus with hyperglycemia; I10 Essential (primary) hypertension
CPT/HCPCS: 36415; 80053; 83036; 84443; 85025

== ENCOUNTER → 2019-04-28 10:46 | Outpatient (CLI) | payer MEDICARE, OTHER, SELFPAY ==
[2019-04-28 11:24] LABS: Influenza A - CEPHEID Flu A NEGATIVE (NEGATIVE); Influenza B - CEPHEID Flu B NEGATIVE (NEGATIVE)
== END ==
PROVIDERS: PCP Family Medicine; Visit Provider Physician Assistant
DX: R68.89 Other general symptoms and signs (principal)
CPT/HCPCS: 87502

== ENCOUNTER → 2019-04-28 11:43 | Outpatient (CLI) | payer MEDICARE, OTHER, SELFPAY ==
--- NOTE | 2019-04-28 11:44 | DI.RAD.S_ITS ---
PROCEDURE: XR CHEST 2V INDICATIONS: cough TECHNIQUE: 2 views of the chest were acquired. COMPARISON: [facility], , CHEST 1 VIEW, 02/06/2016, 11:10. FINDINGS: Surgical changes and devices: None. Lungs and pleura: Minimal appearance of streaky right basilar opacity. Mediastinum: Mediastinal contours are normal. Heart size is normal. Bones and chest wall: No suspicious bony abnormalities. Soft tissues appear unremarkable. IMPRESSION: Minimal streaky right basilar opacity. Levels could represent atelectasis, developing airspace disease such as pneumonia cannot be excluded. Dictated by: Ni Allen M.D. on 04/28/2019 at 11:59 Approved by: Ni Allen M.D. on 04/28/2019 at 11:59
== END ==
PROVIDERS: PCP Family Medicine; Referring Provider Physician Assistant; Visit Provider Physician Assistant
DX: R05 Cough (principal); R68.89 Other general symptoms and signs
CPT/HCPCS: 71046; 87502

== ENCOUNTER → 2019-09-14 14:06 | Outpatient (CLI) | payer MEDICARE, OTHER, SELFPAY ==
[2019-09-14 16:22] LABS: Hemoglobin A1C% w Est Avg Glu 8.4 % (4.0-6.0)
[2019-09-14 16:57] LABS: Thyroid Stimulating Hormone 2.14 uIU/mL (0.47-4.68)
== END ==
PROVIDERS: PCP Family Medicine; Referring Provider Family Medicine; Visit Provider Family Medicine
DX: E03.9 Hypothyroidism, unspecified (principal); E11.40 Type 2 diabetes mellitus with diabetic neuropathy, unspecified; E11.65 Type 2 diabetes mellitus with hyperglycemia
CPT/HCPCS: 36415; 83036; 84443

== ENCOUNTER → 2020-02-01 09:33 | Outpatient (CLI) | payer MEDICARE, OTHER, SELFPAY ==
[2020-02-01 11:05] LABS: Hemoglobin A1C% w Est Avg Glu 7.9 % (4.0-6.0)
[2020-02-01 11:45] LABS: Vitamin D 25 Hydroxy (D3) 36.6 ng/mL (30.0-100.0)
[2020-02-01 12:22] LABS: Folate 9.9 ng/mL (2.76-20.0); Vitamin B12 > 1000 pg/mL (239-931)
== END ==
PROVIDERS: PCP Family Medicine; Referring Provider Family Medicine; Visit Provider Family Medicine
DX: E56.9 Vitamin deficiency, unspecified (principal); E11.40 Type 2 diabetes mellitus with diabetic neuropathy, unspecified; F03.90 Unspecified dementia, unspecified severity, without behavioral disturbance, psychotic disturbance, mood disturbance, and anxiety; Z98.84 Bariatric surgery status; E11.65 Type 2 diabetes mellitus with hyperglycemia
CPT/HCPCS: 36415; 82306; 82607; 82746; 83036

== ENCOUNTER 2020-03-28 13:37 | Emergency (ER) | payer MEDICARE, OTHER, SELFPAY ==
[2020-03-28 13:53] VITALS: BP 155/70; PULSE 61; RESP 16; TEMP 36.9; O2SAT 98
--- NOTE | 2020-03-28 13:53 | DI.RAD.S_ITS ---
PROCEDURE: XR HIP W PEL IF DONE RT 2V INDICATIONS: injury TECHNIQUE: AP pelvis and lateral view of the right hip acquired. COMPARISON: [facility], CR, XR ABDOMEN 1 VIEW, 05/16/2018, 11:21. [facility], SHEEBA, [id number] W PEL IF PERFORMED, 03/04/2017, 6:29. FINDINGS: Bones: Patient is status post right hip arthroplasty, with hardware components in expected positions. The hip joint appears congruent. 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 No evidence of avascular necrosis. No gross hardware loosening or failure. The visualized bony structures appear intact. Soft tissues: No suspicious soft tissue densities. IMPRESSION: No acute right hip fracture or dislocation. No gross hardware complication. Anatomic right hip alignment. Dictated by: José Myrick M.D. on 03/28/2020 at 14:20 Approved by: José Myrick M.D. on 03/28/2020 at 14:21
[2020-03-28] MEDS: ACETAMINOPHEN 325 MG TABLET 650 MG PO (14:29)
[2020-03-28] MEDS: LIDOCAINE PATCH 1 EACH ADH..PATCH TOP (14:29)
--- NOTE | 2020-03-28 14:52 | ED.LOWEXIN ---
HPI - Extremity Injury (Lower) <Diana Andino, SOCIAL WORKER-BC - Last Filed: 03/28/20 15:14> General Chief Complaint: Extremity Injury, Lower Stated Complaint: Stumbled, Twisted Funny, Rt Hip Pain, HX Hip Repla Time Seen by Provider: 03/28/20 13:56 Source: patient and family Mode of arrival: Wheelchair Limitations: no limitations History of Present Illness HPI Narrative: The patient is an 79-year-old female former smoker with history of right-sided hip pain after a near fall yesterday. She states that she wobbled and felt pain in her hip on the side of her replacement. She did not fall. She states this was a mechanical issue. She did not take anything for pain. She is concerned as she has a hip replacement on that side. She presents with her daughter. Her primary care provider is Dr Sherman. She states that the pain is on the right side of her buttock. Related Data Home Medications Medication Instructions Recorded Confirmed ipratropium bromide 2 spray INTRANASAL DIRECTED 08/12/17 02/15/20 Previous Rx's Medication Instructions Recorded blood-glucose sensor #3 each 09/24/17 alendronate 70 mg tablet 70 mg PO QWEEK #13 tab 02/23/19 loratadine 10 mg tablet 10 mg PO QDAY #90 tab 02/23/19 memantine 5 mg tablet 5 mg PO BID #180 tab 02/23/19 omeprazole 20 mg capsule,delayed 20 mg PO DAILY #90 cap 02/23/19 release amlodipine 10 mg tablet 10 mg PO DAILY #90 tab 03/12/19 atenolol 25 mg tablet 25 mg PO DAILY #30 tab 03/23/19 donepezil 10 mg tablet 10 mg PO DAILY #90 tab 03/23/19 albuterol sulfate 90 mcg/actuation 1 inh INHALATION Q4-6H PRN #18 gram 04/28/19 aerosol inhaler levothyroxine 75 mcg tablet 75 mcg PO QAM #90 tab 06/01/19 insulin glargine 100 unit/mL (3 22 unit SUB-Q DAILY #15 ml 08/11/19 mL) subcutaneous pen sertraline 50 mg tablet 50 mg PO DAILY #30 tab 01/25/20 blood sugar diagnostic #100 each 01/26/20 metformin 500 mg tablet See Rx Instructions .ROUTE 02/16/20 .COMPLEX #180 tab lidocaine 1 patch TOPICAL DAILY PRN #15 ea 03/28/20 Allergies Allergy/AdvReac Type Severity Reaction Status Date / Time Sulfa (Sulfonamide Allergy Intermediate Rash Verified 03/28/20 13:56 Antibiotics) [SULFA (SULFONAMIDE ANTIBIOTICS)] Penicillins [PENICILLINS] Allergy Unknown Rash Verified 03/28/20 13:56 promethazine [PROMETHAZINE] Allergy Unknown Verified 03/28/20 13:56 Review of Systems <CASTRO Lewis - Last Filed: 03/28/20 15:14> Review of Systems Narrative: GENERAL: Denies chills, fatigue, malaise, fever, sweats. HEENT: Denies sinus pain, ear pain, sore throat, difficulty swallowing, dizziness. RESPIRATORY: Denies dyspnea, cough, wheezing, hemoptysis, sputum. CARDIOVASCULAR: Denies chest pain, palpitations, orthopnea, edema, GASTROINTESTINAL: Denies nausea, vomiting, abdominal pain, diarrhea, constipation, melena. : Denies dysuria, frequency, incontinence, hematuria, urinary retention. MUSCULOSKELETAL: See HPI SKIN: Denies rash, skin lesions, or other NEUROLOGIC: Denies weakness, headache, numbness, change in speech, confusion, seizures, incoordination. PSYCHIATRIC: No concerning psychosocial issues. 12 point review of systems is negative except for those stated above Patient History <CASTRO Lewis - Last Filed: 03/28/20 15:14> Medical History (Updated 03/28/20 @ 15:06 by CASTRO Lewis) Chicken pox Closed right hip fracture Depression Diabetes mellitus, insulin dependent (IDDM), controlled Hearing loss Hip fracture (03/04/17) History of TB (tuberculosis) (1956) HTN (hypertension) Hypothyroidism Measles Microcytic anemia Sleep apnea Vision disorder Surgical History Anesthesia Gastric banding status (2008) H/O total hysterectomy with bilateral salpingo-oophorectomy (BSO) History of appendectomy History of hemorrhoidectomy History of right hip hemiarthroplasty (03/04/17) History of tonsillectomy Hx of cholecystectomy Family History Grandfather Stroke Father Prostate cancer Stroke Mother Cancer Grandmother No problems noted. Grandfather No problems noted. Grandmother Stroke Social History marital status: household members: spouse lives independently: Yes caregiver/support person: Yes housing: house pets and animals: No occupational status: previously employed current occupational exposures/hazards: No seatbelt use: always do you feel safe at home: Yes Smoking Status: Former smoker Tobacco: How many years used: 30 second hand exposure: No alcohol intake: former substance use type: does not use Smoking Status: Former smoker alcohol intake frequency: other Substance Use Type: does not use Exam <CASTRO Lewis - Last Filed: 03/28/20 15:14> Narrative Exam Narrative: GENERAL: This is a well-nourished, well-developed patient, in no acute distress HEAD: Atraumatic. Normocephalic. No temporal or scalp tenderness. EYES: Pupils equal round and reactive. Extraocular motions intact. No scleral icterus. No injection or drainage. ENT: Nose without bleeding, purulent drainage or septal hematoma. Wearing a mask. Airway patent. NECK: Trachea midline. No JVD or lymphadenopathy. Supple, nontender, no meningeal signs. CARDIOVASCULAR: Regular rate and rhythm RESPIRATORY: No cough. No increased respiratory effort. No accessory muscle use. EXTREMITIES: Pain to palpation posterior right hip, able to flex and extend right hip able to lift entire right leg off of stretcher, able to rotate right hip. Positive pedal pulses right foot BACK: Nontender without deformity or crepitance. No flank tenderness. NEURO: AOx3. SKIN: No rash or erythema on visible skin. No ecchymosis or erythema noted right hip. Initial Vital Signs Initial Vital Signs: Vital Signs Temperature 98.4 F 03/28/20 13:53 Pulse Rate 61 03/28/20 13:53 Respiratory Rate 16 03/28/20 13:53 Blood Pressure 155/70 H 03/28/20 13:53 Pulse Oximetry 98 03/28/20 13:53 <Diana Peralta DO - Last Filed: 03/28/20 18:42> Initial Vital Signs Initial Vital Signs: Vital Signs Temperature 98.4 F 03/28/20 13:53 Pulse Rate 61 03/28/20 13:53 Respiratory Rate 16 03/28/20 13:53 Blood Pressure 155/70 H 03/28/20 13:53 Pulse Oximetry 98 03/28/20 13:53 Scores <CASTRO Lewis - Last Filed: 03/28/20 15:14> GCS [place] coma scale eye opening: Spontaneous Boody coma scale verbal response: Orientated Boody coma scale motor response: Obey commands Boody coma scale total score: 15 Course <CASTRO Lewis - Last Filed: 03/28/20 15:14> Orders Ordered: ED Orders 03/28/20 13:53 XR hip w pel if done RT 2V Stat Discontinued Medications Acetaminophen (Acetaminophen 325 Mg Tablet) 650 mg PO NOW ONE Stop: 03/28/20 14:21 Last Admin: 03/28/20 14:29 Dose: 650 mg Documented by: ANCA Lidocaine (Lidocaine Patch 1 Each Adh..Patch) 1 each TOP NOW ONE Stop: 03/28/20 14:21 Last Admin: 03/28/20 14:29 Dose: 1 each Documented by: ANCA Lidocaine (Remove Lidocaine Patch) 1 each TOP 0200 ULICES Vital Signs Vital signs: Vital Signs - 8 hr 03/28/20 13:53 03/28/20 15:15 Temperature 98.4 F Pulse Rate 61 60 Respiratory Rate 16 16 Blood Pressure 155/70 H 163/63 H Pulse Oximetry 98 98 <Diana Peralta DO - Last Filed: 03/28/20 18:42> Orders Ordered: ED Orders 03/28/20 13:53 XR hip w pel if done RT 2V Stat Discontinued Medications Acetaminophen (Acetaminophen 325 Mg Tablet) 650 mg PO NOW ONE Stop: 03/28/20 14:21 Last Admin: 03/28/20 14:29 Dose: 650 mg Documented by: ACNA Lidocaine (Lidocaine Patch 1 Each Adh..Patch) 1 each TOP NOW ONE Stop: 03/28/20 14:21 Last Admin: 03/28/20 14:29 Dose: 1 each Documented by: ANCA Lidocaine (Remove Lidocaine Patch) 1 each TOP 0200 ULICES Vital Signs Vital signs: Vital Signs - 8 hr 03/28/20 13:53 03/28/20 15:15 Temperature 98.4 F Pulse Rate 61 60 Respiratory Rate 16 16 Blood Pressure 155/70 H 163/63 H Pulse Oximetry 98 98 [facility] - Extremity Injury (Lower) <RACHAEL Lewis-BC - Last Filed: 03/28/20 15:14> Imaging Data Hip x-ray: Radiologist's Impression: [address] [place] [id number] ReportSigned Patient: Zoë Jones MMR#: [id number]: 9Acct:[id number]/Sex: 79 / FDate of Service: 03/28/20Loc: EDAccession Number: [id number] Procedure: XR hip w pel if done RT 2V Ordering Provider: Diana Peralta D.O. PROCEDURE: XR HIP W PEL IF DONE RT 2V INDICATIONS: injury TECHNIQUE: AP pelvis and lateral view of the right hip acquired. COMPARISON: [facility], CR, XR ABDOMEN 1 VIEW, 05/16/2018, 11:21. [facility], CR, [id number] W PEL IF PERFORMED, 03/04/2017, 6:29. FINDINGS: Bones: Patient is status post right hip arthroplasty, with hardware components in expected positions. The hip joint appears congruent. 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 No evidence of avascular necrosis. No gross hardware loosening or failure. The visualized bony structures appear intact. Soft tissues: No suspicious soft tissue densities. IMPRESSION: No acute right hip fracture or dislocation. No gross hardware complication. Anatomic right hip alignment. Dictated by: José Myrick M.D. on 03/28/2020 at 14:20 Approved by: José Myrick M.D. on 03/28/2020 at 14:21 [facility] Narrative Medical decision making narrative: The patient is an 79-year-old female former smoker presents with a chief complaint of right hip pain after awkward positioning yesterday no fall. The x-ray is no acute findings. She is reassuring range of motion. She has positive pedal pulses. We did a trial of acetaminophen as well as lidocaine patch in her pain decreases to 0/10. She is able to ambulate at baseline per her. She ambulates with no pain. Prescription of lidocaine patches provided. Encouraged [id number] medications as needed and able. Encouraged follow-up with primary care provider as well as her orthopedist. Patient states she has a walker at home if she needs it patient daughter have no questions or concerns upon discharge and state understanding of return precautions as well as follow-up care. Discharge Plan Departure Patient Disposition: Home Clinical Impression: Hip pain, right Instructions: Help for Hip Pain, DI for Hip Pain Activity Restrictions/Additional Instructions: Thank you for trusting us with your care today. As I discussed, your x-ray shows no acute fracture. Your pain seems to have improved greatly throughout your stay here, which is fantastic. This does not rule out a soft tissue injury such as a ligament or tendon injury. It is important that you follow up with primary care provider, especially if worsening or no improvement. There can be fractures that did not show up on initial x-ray. As discussed, I sent a prescription of lidocaine patches to [facility] in [place]. He can also use [id number] medications as needed and able. Please come back to the emergency department for any acute concerns such as concern of heart attack stroke etcetera Please follow-up with primary care provider in the next few days Prescriptions: New lidocaine 5 % adhesive patch,medicated 1 patch topical DAILY PRN (Reason: pain) Qty: 15 RF: 0 No Action albuterol sulfate 90 mcg/actuation HFA aerosol inhaler 1 inh INHALATION Q4-6H PRN (Reason: shortness of breath) Qty: 18 RF: 0 omeprazole 20 mg capsule,delayed release(DR/EC) 20 mg PO DAILY Qty: 90 RF: 3 memantine 5 mg tablet 5 mg PO BID Qty: 180 RF: 3 loratadine 10 mg tablet 10 mg PO QDAY Qty: 90 RF: 3 alendronate 70 mg tablet 70 mg PO QWEEK Qty: 13 RF: 3 amlodipine 10 mg tablet 10 mg PO DAILY Qty: 90 RF: 3 donepezil 10 mg tablet 10 mg PO DAILY Qty: 90 RF: 0 atenolol 25 mg tablet 25 mg PO DAILY Qty: 30 RF: 1 Hold Instructions: Home Medication placed on hold at Doctor's office levothyroxine [Synthroid] 75 mcg tablet 75 mcg PO QAM Qty: 90 RF: 3 Lantus Solostar U-100 Insulin 100 unit/mL (3 mL) insulin pen 22 unit Sub-Q DAILY Qty: 15 RF: 1 sertraline 50 mg tablet 50 mg PO DAILY Qty: 30 RF: 2 (DME) FreeStyle Lite Strips Strip See Dose Instructions .ROUTE .MEDSUPPLY Qty: 100 RF: 3 metformin 500 mg tablet See Rx Instructions .ROUTE .COMPLEX Qty: 180 RF: 1 (DME) blood-glucose sensor [Freestyle Navigator Gluc Sens] device See Dose Instructions .ROUTE .MEDSUPPLY Qty: 3 RF: 0 ipratropium bromide 42 mcg (0.06 %) Parks,Non-Aerosol 2 spray Intranasal DIRECTED RF: 0 Referrals: Maria Del Carmen Sherman MD [Primary Care Provider] - <Diana Peralta DO - Last Filed: 03/28/20 18:42> Cosign ED Attending Cosignature Attestation: I was immediately available in the department for consultation. Documentation has been reviewed.
[2020-03-28 15:15] VITALS: BP 163/63; PULSE 60; RESP 16; O2SAT 98
== END 2020-03-28 15:25 | disposition home or self-care (01) ==
PROVIDERS: Emergency Provider Nurse Practitioner Family; PCP Family Medicine
DX: M25.551 Pain in right hip (principal); E11.8 Type 2 diabetes mellitus with unspecified complications; Z79.4 Long term (current) use of insulin; I10 Essential (primary) hypertension; E03.9 Hypothyroidism, unspecified; Z96.641 Presence of right artificial hip joint
CPT/HCPCS: 73502; 99281; 99283

== ENCOUNTER → 2020-05-30 13:37 | Outpatient (CLI) | payer MEDICARE, OTHER, SELFPAY ==
[2020-05-30 14:09] LABS: Alanine Aminotransferase 17 IU/L (<35); Albumin Globulin Ratio 1.3 (1.0-2.8); Alkaline Phosphatase 45 U/L (38-126); Aspartate Aminotransferase 29 IU/L (14-36); BUN Creatinine Ratio 11.1 (6-22); Bilirubin Total 0.4 mg/dL (0.2-1.3); Blood Urea Nitrogen 13 mg/dL (7-17); Carbon Dioxide 27 mmol/L (22-32); Chloride 106 mmol/L (98-107); Estimated Glomerular Filt Rate 44.4 mL/min (>60); Glucose 186 mg/dL (80-110); HEMOLYSIS < 15 (0-50); Potassium 3.8 mmol/L (3.4-5.1); Sodium 141 mmol/L (137-145)
[2020-05-30 14:13] LABS: Hemoglobin A1C% w Est Avg Glu 6.9 % (4.0-6.0)
[2020-05-30 15:19] LABS: Thyroid Stimulating Hormone 1.89 uIU/mL (0.47-4.68)
== END ==
PROVIDERS: PCP Family Medicine; Referring Provider Family Medicine; Visit Provider Family Medicine
DX: E11.40 Type 2 diabetes mellitus with diabetic neuropathy, unspecified (principal); E11.65 Type 2 diabetes mellitus with hyperglycemia; E03.9 Hypothyroidism, unspecified; G47.33 Obstructive sleep apnea (adult) (pediatric)
CPT/HCPCS: 36415; 80053; 83036; 84443; 99213

== ENCOUNTER → 2020-06-18 12:06 | Outpatient (CLI) | payer MEDICARE, OTHER, SELFPAY | PROVIDERS: PCP Family Medicine; Visit Provider Physician Assistant | DX: R30.0 Dysuria (principal) | CPT/HCPCS: 87086 ==

== ENCOUNTER → 2020-07-05 09:30 | Outpatient (CLI) | payer MEDICARE, OTHER, SELFPAY ==
[2020-07-05 11:00] LABS: BUN Creatinine Ratio 20.8 (6-22); Blood Urea Nitrogen 15 mg/dL (7-17); Calcium 9.5 mg/dL (8.4-10.2); Carbon Dioxide 26 mmol/L (22-32); Chloride 105 mmol/L (98-107); Estimated Glomerular Filt Rate > 60.0 mL/min (>60); Glucose 140 mg/dL (80-110); HEMOLYSIS < 15 (0-50); Potassium 3.4 mmol/L (3.4-5.1); Sodium 142 mmol/L (137-145)
== END ==
PROVIDERS: PCP Family Medicine; Referring Provider Family Medicine; Visit Provider Family Medicine
DX: R79.89 Other specified abnormal findings of blood chemistry (principal)
CPT/HCPCS: 36415; 80048

== ENCOUNTER → 2020-09-19 09:28 | Outpatient (CLI) | payer MEDICARE, OTHER, SELFPAY ==
[2020-09-19 10:50] LABS: Add Manual Diff / Slide Review NO; Basophils Absolute Auto 100 /uL (0-100); Eosinophils Absolute Auto 200 /uL (0-450); Eosinophils Percent Auto 3.1 % (2-4); Hematocrit 36.4 % (36-46); Hemoglobin 11.9 g/dL (12.0-16.0); Lymphocytes Absolute Auto 1500 /uL (1100-4500); Lymphocytes Percent Auto 31.3 % (25-40); Mean Corpuscular HGB Conc 32.6 % (30-36); Mean Corpuscular Hemoglobin 26.4 PG (26-34); Mean Corpuscular Volume 80.8 fL (80-100); Monocytes Absolute Auto 300 /uL (0-900); Monocytes Percent Auto 7.1 % (3-14); Neutrophils Absolute Auto 2800 /uL (1500-7000); Neutrophils Percent Auto 57.5 % (50-75); Platelet Count 264 X10^3/uL (150-400); Red Blood Cell Count 4.51 X10^6/uL (4.0-5.2); Red Cell Distribution Width 15.8 % (11.6-14.8); White Blood Cell Count 4.9 X10^3/uL (4.5-11.0)
[2020-09-19 11:06] LABS: Hemoglobin A1C% w Est Avg Glu 7.1 % (4.0-6.0)
[2020-09-19 11:16] LABS: BUN Creatinine Ratio 24.6 (6-22); Blood Urea Nitrogen 15 mg/dL (7-17); Calcium 9.4 mg/dL (8.4-10.2); Carbon Dioxide 28 mmol/L (22-32); Chloride 106 mmol/L (98-107); Cholesterol 160 mg/dL (140-199); Estimated Glomerular Filt Rate > 60.0 mL/min (>60); Glucose 113 mg/dL (80-110); HDL Cholesterol 42 mg/dL (40-60); HEMOLYSIS < 15 (0-50); LDL Cholesterol Calculated 94 mg/dL (<100); Potassium 4.2 mmol/L (3.4-5.1); Sodium 142 mmol/L (137-145); Triglycerides 118 mg/dL (35-150)
== END ==
PROVIDERS: PCP Family Medicine; Referring Provider Family Medicine; Visit Provider Family Medicine
DX: D64.9 Anemia, unspecified (principal); E03.9 Hypothyroidism, unspecified; E11.9 Type 2 diabetes mellitus without complications; M81.0 Age-related osteoporosis without current pathological fracture; I10 Essential (primary) hypertension; Z79.4 Long term (current) use of insulin
CPT/HCPCS: 36415; 80048; 80061; 82306; 83036; 85025

== ENCOUNTER → 2020-12-01 16:18 | Outpatient (CLI) | payer MEDICARE, OTHER, SELFPAY | PROVIDERS: PCP Family Medicine; Visit Provider Nurse Practitioner | DX: R30.0 Dysuria (principal); R35.0 Frequency of micturition | CPT/HCPCS: 87077; 87086; 87147; 87186 ==

== ENCOUNTER → 2021-01-12 10:50 | Outpatient (CLI) | payer MEDICARE, OTHER, SELFPAY ==
--- NOTE | 2021-01-12 10:51 | DI.RAD.S_ITS ---
PROCEDURE: XR DEXA AXIAL SKELETON INDICATIONS: osteoporosis COMPARISON: [facility], CR, XR DEXA AXIAL SKELETON, 01/06/2018, 13:57. FINDINGS: This blank DEXA report has been sent in error by the PACS system. The correct and complete report will be forthcoming in 1-2 days. Thank you for your patience and understanding. Dictated by: Terry Weiss M.D. on 01/12/2021 at 13:39 Approved by: Terry Weiss M.D. on 01/12/2021 at 13:39
== END ==
PROVIDERS: PCP Family Medicine; Referring Provider Family Medicine; Visit Provider Family Medicine
DX: M81.0 Age-related osteoporosis without current pathological fracture (principal); Z78.0 Asymptomatic menopausal state; E11.9 Type 2 diabetes mellitus without complications; Z90.722 Acquired absence of ovaries, bilateral; Z87.891 Personal history of nicotine dependence
CPT/HCPCS: 77080; 77081

== ENCOUNTER → 2021-03-31 14:02 | Outpatient (CLI) | payer MEDICARE, OTHER, SELFPAY ==
[2021-03-31 14:58] LABS: Hemoglobin A1C% w Est Avg Glu 6.8 % (4.0-6.0)
== END ==
PROVIDERS: PCP Family Medicine; Referring Provider Family Medicine; Visit Provider Family Medicine
DX: E11.9 Type 2 diabetes mellitus without complications (principal)
CPT/HCPCS: 36415; 83036

== ENCOUNTER → 2021-04-04 14:04 | Outpatient (CLI) | payer MEDICARE, OTHER, SELFPAY ==
--- NOTE | 2021-04-04 14:07 | DI.RAD.S_ITS ---
PROCEDURE: XR KUB INDICATIONS: Kidney stones TECHNIQUE: One view of the abdomen acquired. COMPARISON: [facility], , CT ABDOMEN/PELVIS WITH CONTRAST, 03/12/2021, 17:51. FINDINGS: Surgical changes and devices: None. Bowel: Bowel gas pattern is normal. 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 There multiple smaller stones in left kidney. Visualized solid organ contours appear normal in size. Bones: No suspicious bony lesions. Right hip arthroplasty. IMPRESSION: Multiple right renal calculi. Dictated by: Terry Weiss M.D. on 04/04/2021 at 16:05 Approved by: Terry Weiss M.D. on 04/04/2021 at 16:06
== END ==
PROVIDERS: PCP Family Medicine; Referring Provider Urology; Visit Provider Urology
DX: N20.0 Calculus of kidney (principal); N39.0 Urinary tract infection, site not specified; Z87.442 Personal history of urinary calculi
CPT/HCPCS: 74018; 99215

== ENCOUNTER → 2021-04-21 14:56 | Outpatient (CLI) | payer MEDICARE, OTHER, SELFPAY ==
[2021-04-21 16:05] LABS: Alanine Aminotransferase 16 IU/L (<35); Albumin 4.4 g/dL (3.5-5.0); Albumin Globulin Ratio 1.2 (1.0-2.8); Alkaline Phosphatase 44 U/L (38-126); Aspartate Aminotransferase 27 IU/L (14-36); BUN Creatinine Ratio 15.8 (6-22); Bilirubin Total 0.4 mg/dL (0.2-1.3); Blood Urea Nitrogen 18 mg/dL (7-17); Calcium 9.7 mg/dL (8.4-10.2); Carbon Dioxide 28 mmol/L (22-32); Chloride 102 mmol/L (98-107); Estimated Glomerular Filt Rate 45.6 mL/min (>60); Globulin 3.7 g/dL (1.7-4.1); Glucose 215 mg/dL (80-110); HEMOLYSIS < 15 (0-50); Potassium 4.2 mmol/L (3.4-5.1); Sodium 137 mmol/L (137-145); Total Protein 8.1 g/dL (6.3-8.2)
[2021-04-21 17:05] LABS: Microalbumi Creatinin Ratio Ur 135.2 ug/mg CR (<30); Microalbumin Urine Random 28.8 mg/dL (0-1.6)
[2021-04-21 18:45] LABS: Thyroid Stimulating Hormone 1.63 uIU/mL (0.47-4.68)
== END ==
PROVIDERS: PCP Family Medicine; Referring Provider Urology; Visit Provider Urology
DX: E03.9 Hypothyroidism, unspecified (principal); R30.0 Dysuria; E11.9 Type 2 diabetes mellitus without complications; D64.9 Anemia, unspecified; I10 Essential (primary) hypertension; M81.0 Age-related osteoporosis without current pathological fracture; Z79.4 Long term (current) use of insulin
CPT/HCPCS: 36415; 80053; 82043; 82570; 84443; 87086

== ENCOUNTER → 2021-05-12 16:10 | Outpatient (CLI) | payer MEDICARE, OTHER, SELFPAY | PROVIDERS: PCP Family Medicine; Visit Provider Urology | DX: R30.0 Dysuria (principal); N39.0 Urinary tract infection, site not specified | CPT/HCPCS: 51701; 87086 ==

== ENCOUNTER → 2021-05-22 11:50 | Outpatient (CLI) | payer MEDICARE, OTHER, SELFPAY ==
[2021-05-22 14:49] LABS: COVID-19 CEPHEID PCR (VTM/NP) Negative (Negative)
== END ==
PROVIDERS: PCP Family Medicine; Visit Provider Physical Medicine & Rehabilitation
DX: Z20.822 Contact with and (suspected) exposure to COVID-19 (principal)
CPT/HCPCS: C9803; U0003; U0005

== ENCOUNTER → 2021-06-19 12:38 | Outpatient (CLI) | payer MEDICARE, OTHER, SELFPAY | PROVIDERS: PCP Family Medicine; Referring Provider Urology; Visit Provider Urology | DX: R30.0 Dysuria (principal) | CPT/HCPCS: 87086 ==

== ENCOUNTER → 2021-06-30 14:24 | Outpatient (CLI) | payer MEDICARE, OTHER, SELFPAY ==
[2021-06-30 15:22] LABS: Appearance Urine UA CLOUDY; Bilirubin Urine UA NEGATIVE (NEGATIVE); Color Urine UA YELLOW; Glucose Urine UA NEGATIVE (Negative); Ketones Urine UA TRACE (NEGATIVE); Leukocyte Esterase Urine UA 2+ (NEGATIVE); Nitrite Urine UA NEGATIVE (Negative); Occult Blood Urine UA 3+ (Negative); Protein Urine UA 3+ (Negative); Specific Gravity Urine UA 1.025 (1.000-1.035); Urobilinogen Urine UA 0.2 E.U./dL (0.2)
[2021-06-30 15:27] LABS: pH Urine UA 5.5 (4.5-8.0)
[2021-06-30 15:32] LABS: Amorphous Sediment Urine 2+; RBC Urine 10-30/HPF (0-5/HPF); WBC Urine 5-10/HPF (0-5/HPF)
[2021-06-30 15:33] LABS: Bacteria Urine Few (2-10); Culture Indicated Urine Specimen Cultured
[2021-06-30 15:37] LABS: Hemoglobin A1C% w Est Avg Glu 6.9 % (4.0-6.0)
[2021-06-30 15:55] LABS: BUN Creatinine Ratio 31.2 (6-22); Blood Urea Nitrogen 24 mg/dL (7-17); Calcium 9.2 mg/dL (8.4-10.2); Carbon Dioxide 22 mmol/L (22-32); Chloride 108 mmol/L (98-107); Estimated Glomerular Filt Rate > 60 mL/min (>60); Glucose 171 mg/dL (80-110); HEMOLYSIS < 15 (0-50); Potassium 4.1 mmol/L (3.4-5.1); Sodium 140 mmol/L (137-145)
== END ==
PROVIDERS: PCP Family Medicine; Referring Provider Urology; Visit Provider Urology
DX: E11.9 Type 2 diabetes mellitus without complications (principal); N20.0 Calculus of kidney; Z79.4 Long term (current) use of insulin; I10 Essential (primary) hypertension; Z87.442 Personal history of urinary calculi
CPT/HCPCS: 36415; 80048; 81001; 83036; 87086

== ENCOUNTER → 2021-07-03 09:55 | Outpatient (CLI) | payer MEDICARE, OTHER, SELFPAY ==
[2021-07-03 13:55] LABS: COVID-19 CEPHEID PCR (VTM/NP) Negative (Negative)
== END ==
PROVIDERS: PCP Family Medicine; Visit Provider Family Medicine Sleep Medicine
DX: Z20.822 Contact with and (suspected) exposure to COVID-19 (principal)
CPT/HCPCS: C9803; U0003; U0005

== ENCOUNTER → 2021-08-21 14:25 | Outpatient (CLI) | payer MEDICARE, OTHER, SELFPAY ==
--- NOTE | 2021-08-21 14:27 | DI.US.S_ITS ---
PROCEDURE: US RETROPERITONEAL COMP INDICATIONS: Calculus of kidney TECHNIQUE: Real-time scanning was performed of the kidneys and bladder, with image documentation. COMPARISON: [facility], RG, CT ABDOMEN/PELVIS WITH CONTRAST, 03/12/2021, 17:51. FINDINGS: Kidneys: Kidneys are normal in size. Right kidney measures 10.9 cm long; left kidney measures 9.2 cm long. Right renal cortical thickness is 1.3 cm; left renal cortical thickness is 1.4 cm. Renal cortical echotexture is normal. No hydronephrosis. 7 millimeter nonobstructing stone noted in the left kidney. No suspicious solid mass lesions. Bladder: Pre-void bladder volume is 87 mL. Post-void residual is 6 mL. Pre-void images demonstrate no intraluminal masses or stones. On pre-void images, neither the right nor the left ureteral jets are noted with color Doppler interrogation. (Of note, ureteral jets may not be detectable in up to 25% of cases due to insufficient differences in specific gravity between ureteral and bladder urine). Miscellaneous: No free pelvic fluid. IMPRESSION: 7 millimeter nonobstructing renal stone. No hydronephrosis. Dictated by: Heather Santa MD, PhD on 08/21/2021 at 16:20 Approved by: Heather Santa MD, PhD on 08/21/2021 at 16:22
== END ==
PROVIDERS: PCP Family Medicine; Referring Provider Urology; Visit Provider Urology
DX: N20.0 Calculus of kidney (principal)
CPT/HCPCS: 76770

== ENCOUNTER → 2021-10-10 10:29 | Outpatient (CLI) | payer MEDICARE, OTHER, SELFPAY ==
[2021-10-10 13:47] LABS: COVID19 -Nasal RAPID Negative (Negative)
--- NOTE | 2021-10-10 14:28 | PM.TREADMILL ---
Cardiac Stress Test Report Referral & Results Date Patient Seen: 10/10/21 Requesting provider: Maria Del Carmen Sherman Indication: Chest discomfort Rest ECG: Unremarkable Procedure Note: After both written and verbal informed consent the patient had an IV started by the diagnostic imaging RN, and then was hooked up to the treadmill monitoring system. The Lexiscan material, and then the Cardiolite tracer, were administered sequentially. An additional 3 min was spent monitoring the patient while supine on the gurney. The patient had a normal response to all infused materials. Impression: Please see perfusion imaging report for details regarding possible ischemia Please note: Actual ECG tracings can be found in the PACS system.
--- NOTE | 2021-10-10 19:55 | DI.NM.S_ITS ---
DATE OF SERVICE: 10/10/2021 PROCEDURE PERFORMED: Pharmacologic vasodilator stress and rest myocardial perfusion imaging with gating to assess ejection fraction and regional wall motion. ORDERING PROVIDER: Dr. Maria Del Carmen Sherman. INDICATIONS: The patient is an 81-year-old hypertensive diabetic female with dementia and chest discomfort. CARDIAC STRESS: Per protocol, 0.4 mg of regadenoson was infused with a normal hemodynamic response. No chest discomfort was reported. Resting ECG shows sinus rhythm with normal ST segments and there are no significant ST-segment shifts or arrhythmias with stress. Per protocol, 24.9 millicuries of technetium-99m Myoview was injected and she was imaged 10 minutes later using a gated SPECT acquisition protocol. Earlier in the day while at rest, she had been injected with 10.8 millicuries of technetium-99m Myoview and was imaged 20 minutes after injection using a gated SPECT acquisition protocol. FINDINGS: 1. Raw data: There is fairly good myocardial tracer uptake although no prone images are available because the patient was unable to lie prone. The lung/heart ratio was normal at 0.30 with a normal TID ratio of 1.03. 2. Quantitated gated SPECT: Post-stress ejection fraction is estimated at 91%, likely an overestimate due to relatively small left ventricular volumes. There are no focal wall motion abnormalities. Resting ejection fraction is estimated at 82% with a resting end-diastolic volume of 61 ml. 3. Myocardial perfusion imaging: Post-stress supine images shows a normal, uniform pattern of perfusion without any perfusion defects. There are no areas of improvement on the resting images. IMPRESSION: 1. Normal myocardial perfusion study. 2. No evidence for myocardial ischemia or previous myocardial infarction. 3. High-normal left ventricular systolic function without focal wall motion abnormalities and relatively small left ventricular volumes. 4. No apparent angina or ECG evidence of ischemia with vasodilators stress. Zoë Connelly - GRANT/abbie/tristen doc#: [id number]/job#: [id number] dd: 10/10/2021 17:02:00 dt: 10/10/2021 17:56:00 DICTATING /COPIES TO: Raphael Baker MD COPIES MNE: STERO;
== END ==
PROVIDERS: PCP Family Medicine; Referring Provider Family Medicine; Visit Provider Family Medicine
DX: R07.89 Other chest pain (principal); Z20.822 Contact with and (suspected) exposure to COVID-19
CPT/HCPCS: 78452; 87635; 93016; 93017; 93018; A9502; J2785

== ENCOUNTER → 2022-01-12 10:43 | Outpatient (CLI) | payer MEDICARE, OTHER, SELFPAY ==
[2022-01-12 11:55] LABS: Add Manual Diff / Slide Review NO; Basophils Absolute Auto 0 /uL (0-100); Basophils Percent Auto 0.7 % (0-2); Eosinophils Absolute Auto 200 /uL (0-450); Eosinophils Percent Auto 3.5 % (2-4); Hematocrit 30.3 % (36-46); Hemoglobin 9.8 g/dL (12.0-16.0); Lymphocytes Absolute Auto 1300 /uL (1100-4500); Lymphocytes Percent Auto 29.7 % (25-40); Mean Corpuscular HGB Conc 32.4 % (30-36); Mean Corpuscular Hemoglobin 25.3 PG (26-34); Mean Corpuscular Volume 78.2 fL (80-100); Monocytes Absolute Auto 400 /uL (0-900); Monocytes Percent Auto 7.9 % (3-14); Neutrophils Absolute Auto 2600 /uL (1500-7000); Neutrophils Percent Auto 58.2 % (50-75); Platelet Count 264 X10^3/uL (150-400); Red Blood Cell Count 3.87 X10^6/uL (4.0-5.2); Red Cell Distribution Width 16.1 % (11.6-14.8); White Blood Cell Count 4.5 X10^3/uL (4.5-11.0)
[2022-01-12 12:02] LABS: Hemoglobin A1C% w Est Avg Glu 6.4 % (4.0-6.0)
[2022-01-12 12:13] LABS: HEMOLYSIS 18 (0-50); Iron 37 ug/dL (37-170)
[2022-01-12 12:24] LABS: Percent Iron Saturation 9 % (15-50); Total Iron Binding Capacity 413 ug/dL (265-497); Transferrin 325 mg/dL (206-381)
== END ==
PROVIDERS: PCP Family Medicine; Referring Provider Family Medicine; Visit Provider Family Medicine
DX: D64.9 Anemia, unspecified (principal); E11.9 Type 2 diabetes mellitus without complications; Z79.4 Long term (current) use of insulin; E03.9 Hypothyroidism, unspecified
CPT/HCPCS: 36415; 83036; 83540; 83550; 85025

== ENCOUNTER → 2022-05-18 10:22 | Outpatient (CLI) | payer MEDICARE, OTHER, SELFPAY ==
[2022-05-18 11:38] LABS: Add Manual Diff / Slide Review NO; Basophils Absolute Auto 0 /uL (0-100); Basophils Percent Auto 0.3 % (0-2); Eosinophils Absolute Auto 100 /uL (0-450); Eosinophils Percent Auto 0.5 % (2-4); Hematocrit 32.1 % (36-46); Hemoglobin 10.3 g/dL (12.0-16.0); Lymphocytes Absolute Auto 1000 /uL (1100-4500); Lymphocytes Percent Auto 8.4 % (25-40); Mean Corpuscular Hemoglobin 25.4 PG (26-34); Mean Corpuscular Volume 79.3 fL (80-100); Monocytes Absolute Auto 1100 /uL (0-900); Neutrophils Absolute Auto 10000 /uL (1500-7000); Neutrophils Percent Auto 81.8 % (50-75); Platelet Count 269 X10^3/uL (150-400); Red Blood Cell Count 4.04 X10^6/uL (4.0-5.2); Red Cell Distribution Width 17.3 % (11.6-14.8); White Blood Cell Count 12.2 X10^3/uL (4.5-11.0)
== END ==
PROVIDERS: PCP Family Medicine; Referring Provider Family Medicine; Visit Provider Family Medicine
DX: D64.9 Anemia, unspecified (principal)
CPT/HCPCS: 36415; 85025

== ENCOUNTER → 2022-07-02 10:52 | Outpatient (CLI) | payer MEDICARE, OTHER, SELFPAY ==
--- NOTE | 2022-07-02 10:53 | DI.RAD.S_ITS ---
PROCEDURE: XR HIP W PEL IF DONE RT 2V INDICATIONS: hip pain TECHNIQUE: AP pelvis and lateral view of the right hip acquired. COMPARISON: [facility], CR, [id number] W PEL IF PERFORMED, 03/04/2017, 6:29. FINDINGS: Bones: Patient is status post right hip arthroplasty, with hardware components in expected positions. The hip joint appears congruent. The visualized bony structures appear intact. Soft tissues: Overlying postoperative changes are noted. No suspicious soft tissue densities. Surgical clips project over the right sacroiliac joint IMPRESSION: Right hip arthroplasty in good position Approved by: Gilles Harmon M.D. on 07/02/2022 at 13:01
== END ==
PROVIDERS: PCP Family Medicine; Referring Provider Nurse Practitioner Family; Visit Provider Nurse Practitioner Family
DX: M25.551 Pain in right hip (principal); Z96.641 Presence of right artificial hip joint
CPT/HCPCS: 73502

== ENCOUNTER → 2022-10-29 10:18 | Outpatient (CLI) | payer MEDICARE, OTHER, SELFPAY ==
[2022-10-29 10:56] LABS: Add Manual Diff / Slide Review NO; Basophils Absolute Auto 0 /uL (0-100); Basophils Percent Auto 0.8 % (0-2); Eosinophils Absolute Auto 200 /uL (0-450); Eosinophils Percent Auto 4.5 % (2-4); Hematocrit 35.8 % (36-46); Lymphocytes Absolute Auto 700 /uL (1100-4500); Lymphocytes Percent Auto 17.6 % (25-40); Mean Corpuscular HGB Conc 33.5 % (30-36); Mean Corpuscular Hemoglobin 28.3 PG (26-34); Mean Corpuscular Volume 84.5 fL (80-100); Monocytes Absolute Auto 400 /uL (0-900); Monocytes Percent Auto 9.6 % (3-14); Neutrophils Absolute Auto 2800 /uL (1500-7000); Neutrophils Percent Auto 67.5 % (50-75); Platelet Count 205 X10^3/uL (150-400); Red Blood Cell Count 4.24 X10^6/uL (4.0-5.2); Red Cell Distribution Width 15.7 % (11.6-14.8); White Blood Cell Count 4.2 X10^3/uL (4.5-11.0)
[2022-10-29 11:10] LABS: Hemoglobin A1C% w Est Avg Glu 8.6 % (4.0-6.0)
[2022-10-29 11:24] LABS: Alanine Aminotransferase 43 IU/L (<35); Albumin 3.9 g/dL (3.5-5.0); Albumin Globulin Ratio 1.1 (1.0-2.8); Alkaline Phosphatase 55 U/L (38-126); Aspartate Aminotransferase 31 IU/L (14-36); Bilirubin Total 0.5 mg/dL (0.2-1.3); Blood Urea Nitrogen 21 mg/dL (7-17); Carbon Dioxide 28 mmol/L (22-32); Chloride 103 mmol/L (98-107); Estimated Glomerular Filt Rate > 60 mL/min (>60); Globulin 3.4 g/dL (1.7-4.1); Glucose 144 mg/dL (80-110); HEMOLYSIS 17 (0-50); Potassium 4.9 mmol/L (3.4-5.1); Sodium 136 mmol/L (137-145); Total Protein 7.3 g/dL (6.3-8.2)
[2022-10-29 11:55] LABS: TSH w/ Reflex to FT4 1.62 uIU/mL (0.47-4.68)
== END ==
PROVIDERS: PCP Family Medicine; Referring Provider Family Medicine; Visit Provider Family Medicine
DX: E03.9 Hypothyroidism, unspecified (principal); E11.9 Type 2 diabetes mellitus without complications; I10 Essential (primary) hypertension; D64.9 Anemia, unspecified
CPT/HCPCS: 36415; 80053; 83036; 84443; 85025

== ENCOUNTER → 2023-02-08 10:19 | Outpatient (CLI) | payer MEDICARE, OTHER, SELFPAY ==
[2023-02-08 12:04] LABS: Alanine Aminotransferase 21 IU/L (<35); Albumin 4.1 g/dL (3.5-5.0); Albumin Globulin Ratio 1.2 (1.0-2.8); Alkaline Phosphatase 45 U/L (38-126); Aspartate Aminotransferase 33 IU/L (14-36); BUN Creatinine Ratio 26.9 (6-22); Bilirubin Total 0.7 mg/dL (0.2-1.3); Blood Urea Nitrogen 21 mg/dL (7-17); Calcium 9.8 mg/dL (8.4-10.2); Carbon Dioxide 28 mmol/L (22-32); Chloride 103 mmol/L (98-107); Estimated Glomerular Filt Rate > 60 mL/min (>60); Globulin 3.5 g/dL (1.7-4.1); Glucose 138 mg/dL (80-110); HEMOLYSIS < 15 (0-50); Potassium 4.4 mmol/L (3.4-5.1); Sodium 137 mmol/L (137-145); Total Protein 7.6 g/dL (6.3-8.2)
[2023-02-08 17:50] LABS: Hemoglobin A1C% w Est Avg Glu 9.3 % (4.0-6.0)
== END ==
PROVIDERS: PCP Family Medicine; Referring Provider Family Medicine; Visit Provider Family Medicine
DX: E11.9 Type 2 diabetes mellitus without complications (principal)
CPT/HCPCS: 36415; 80053; 83036

== ENCOUNTER → 2023-05-10 10:11 | Outpatient (CLI) | payer MEDICARE, OTHER, SELFPAY ==
[2023-05-10 11:21] LABS: Hemoglobin A1C% w Est Avg Glu 7.2 % (4.0-6.0)
[2023-05-10 11:50] LABS: Alanine Aminotransferase 17 IU/L (<35); Albumin Globulin Ratio 1.3 (1.0-2.8); Alkaline Phosphatase 52 U/L (38-126); Aspartate Aminotransferase 26 IU/L (14-36); BUN Creatinine Ratio 28.8 (6-22); Bilirubin Total 0.7 mg/dL (0.2-1.3); Blood Urea Nitrogen 17 mg/dL (7-17); Calcium 9.3 mg/dL (8.4-10.2); Carbon Dioxide 25 mmol/L (22-32); Chloride 108 mmol/L (98-107); Estimated Glomerular Filt Rate > 60 mL/min (>60); Glucose 146 mg/dL (80-110); HEMOLYSIS 24 (0-50); Potassium 4.3 mmol/L (3.4-5.1); Sodium 140 mmol/L (137-145)
== END ==
PROVIDERS: PCP Family Medicine; Referring Provider Family Medicine; Visit Provider Family Medicine
DX: E03.9 Hypothyroidism, unspecified (principal); E11.9 Type 2 diabetes mellitus without complications; I10 Essential (primary) hypertension; Z79.4 Long term (current) use of insulin
CPT/HCPCS: 36415; 80053; 83036

== ENCOUNTER → 2023-07-29 09:53 | Outpatient (CLI) | payer MEDICARE, OTHER, SELFPAY ==
[2023-07-29 11:46] LABS: Creatinine Urine Random 47.16 mg/dL
[2023-07-29 11:50] LABS: Microalbumin Urine Random 1.3 mg/dL (0-1.6)
== END ==
PROVIDERS: PCP Family Medicine; Referring Provider Family Medicine; Visit Provider Family Medicine
DX: E03.9 Hypothyroidism, unspecified (principal); E11.9 Type 2 diabetes mellitus without complications; Z79.4 Long term (current) use of insulin; I10 Essential (primary) hypertension
CPT/HCPCS: 82043; 82570

== ENCOUNTER → 2023-11-18 09:25 | Outpatient (CLI) | payer MEDICARE, OTHER, SELFPAY ==
[2023-11-18 09:58] LABS: Hemoglobin A1C% w Est Avg Glu 7.6 % (4.0-6.0)
== END ==
LOC: LAB 09:28
PROVIDERS: PCP Family Medicine; Referring Provider Family Medicine; Visit Provider Family Medicine
DX: E11.9 Type 2 diabetes mellitus without complications (principal)
CPT/HCPCS: 36415; 83036

== ENCOUNTER → 2024-02-17 11:34 | Outpatient (CLI) | payer MEDICARE, OTHER, SELFPAY ==
--- NOTE | 2024-02-17 11:36 | DI.RAD.S_ITS ---
PROCEDURE: XR HIP W PEL IF DONE ISAURO MIN 4V INDICATIONS: hip pain s/p fall TECHNIQUE: AP pelvis with lateral view(s) of the bilateral hip(s). COMPARISON: [facility], , XR HIP W PEL IF DONE RT 2V, 07/02/2022, 10:57. FINDINGS: Bones: Patient is status post right total hip arthroplasty. Right hip alignment is unchanged from prior study. No gross hardware loosening or failure. No acute periprosthetic fracture. Moderate left hip joint osteoarthritis is seen with joint space narrowing, subchondral sclerosis and small marginal osteophyte formation not significantly changed from 2022 study. No fractures or dislocations. No evidence of avascular necrosis of femoral head. No suspicious bony lesions. Degenerative disc disease in visualized lower lumbar spine is seen. Soft tissues: The visualized bowel gas pattern is normal. No suspicious soft tissue calcifications. IMPRESSION: 1. Prior right total hip arthroplasty with stable anatomic right hip alignment. No gross hardware loosening or failure. No acute fracture or dislocation. 2. Moderate left hip joint osteoarthritis. No acute fracture or dislocation. No evidence of avascular necrosis of femoral head. 3. Degenerative disc in visualized lower lumbar spine. Dictated by: José Myrick M.D. on 02/17/2024 at 13:42 Approved by: José Myrick M.D. on 02/17/2024 at 13:44
== END ==
LOC: RAD 11:35
PROVIDERS: PCP Family Medicine; Referring Provider Family Medicine; Visit Provider Family Medicine
DX: M16.12 Unilateral primary osteoarthritis, left hip (principal); M51.369 Other intervertebral disc degeneration, lumbar region without mention of lumbar back pain or lower extremity pain; M25.559 Pain in unspecified hip; Z96.641 Presence of right artificial hip joint; Z91.81 History of falling
CPT/HCPCS: 73522

== ENCOUNTER → 2024-08-24 12:00 | Outpatient (CLI) | payer MEDICARE, OTHER, SELFPAY ==
--- NOTE | 2024-08-24 12:02 | DI.RAD.S_ITS ---
PROCEDURE: XR CHEST 2V INDICATIONS: sob TECHNIQUE: 2 views of the chest were acquired. COMPARISON: [facility], CR, XR CHEST 2V, 04/28/2019, 11:41. FINDINGS: Heart, mediastinum and pulmonary vascular: Heart is normal in size and configuration. Mediastinum is unremarkable. Pulmonary vascular is normal. Lungs: Clear Pleural spaces: Small left pleural effusion Bones and soft tissues: Probable malunified old proximal left humeral fracture. Mild chronic wedging all thoracic vertebral bodies moderate degenerative disc disease each level. IMPRESSION: Small left pleural effusion. Dictated by: Bib Billings M.D. on 08/25/2024 at 11:36 Approved by: Bbi Billings M.D. on 08/25/2024 at 11:37
[2024-08-24 13:03] LABS: Add Manual Diff / Slide Review NO; Basophils Absolute Auto 0 /uL (0-100); Basophils Percent Auto 0.8 % (0-2); Eosinophils Absolute Auto 100 /uL (0-450); Eosinophils Percent Auto 2.1 % (2-4); Hematocrit 36.7 % (36-46); Hemoglobin 11.9 g/dL (12.0-16.0); Lymphocytes Absolute Auto 1000 /uL (1100-4500); Lymphocytes Percent Auto 19.5 % (25-40); Mean Corpuscular HGB Conc 32.5 % (30-36); Mean Corpuscular Hemoglobin 28.3 PG (26-34); Mean Corpuscular Volume 87.1 fL (80-100); Monocytes Absolute Auto 500 /uL (0-900); Monocytes Percent Auto 9.5 % (3-14); Neutrophils Absolute Auto 3600 /uL (1500-7000); Neutrophils Percent Auto 68.1 % (50-75); Platelet Count 305 X10^3/uL (150-400); Red Blood Cell Count 4.22 X10^6/uL (4.0-5.2); Red Cell Distribution Width 13.3 % (11.6-14.8); White Blood Cell Count 5.3 X10^3/uL (4.5-11.0)
[2024-08-24 13:26] LABS: Alanine Aminotransferase 15 IU/L (<35); Albumin 4.2 g/dL (3.5-5.0); Albumin Globulin Ratio 1.2 (1.0-2.8); Alkaline Phosphatase 63 U/L (38-126); Aspartate Aminotransferase 29 IU/L (14-36); Bilirubin Total 0.4 mg/dL (0.2-1.3); Blood Urea Nitrogen 20 mg/dL (7-17); Calcium 9.3 mg/dL (8.4-10.2); Carbon Dioxide 30 mmol/L (22-32); Chloride 99 mmol/L (98-107); Estimated Glomerular Filt Rate > 60 mL/min (>60); Globulin 3.4 g/dL (1.7-4.1); Glucose 121 mg/dL (70-99); HEMOLYSIS < 15 (0-50); Potassium 4.6 mmol/L (3.4-5.1); Sodium 138 mmol/L (137-145); Total Protein 7.6 g/dL (6.3-8.2)
== END ==
LOC: LAB 12:01 → RAD 12:02
PROVIDERS: PCP Family Medicine; Referring Provider Family Medicine; Visit Provider Family Medicine
DX: R06.02 Shortness of breath (principal); J90 Pleural effusion, not elsewhere classified; E11.9 Type 2 diabetes mellitus without complications; M51.34 Other intervertebral disc degeneration, thoracic region; M48.54XA Collapsed vertebra, not elsewhere classified, thoracic region, initial encounter for fracture; Z79.4 Long term (current) use of insulin
CPT/HCPCS: 36415; 71046; 80053; 85025